=== PATIENT | male | born 1955 | race Caucasian/White ===

== ENCOUNTER 2022-05-16 01:06 | Inpatient (IN) | payer OTHER ==
[2022-05-16] VITALS (64 sets, daily range): BP systolic 82–143; BP diastolic 23–69
[~2022-05-16] VITALS: Ht 172.7 cm; Wt 62.0 kg
[~2022-05-16 01:06] MED LIST: CARI250T
[2022-05-16] MEDS ORDERED: NALOXONE HCL 1MG/ML 2ML SYRINGE IV ONE (01:30)
[2022-05-16] MEDS ORDERED: LORazepam 2MG/ML-1ML VIAL ONE (01:37)
[2022-05-16] MEDS ORDERED: levETIRAcetam 500 MG/5ML INJ IV ONE (01:37)
[2022-05-16] MEDS ORDERED: ETOMIDATE (2MG/ML) 20ML VIAL IV ONE ×2 (01:50→02:30)
[2022-05-16] MEDS ORDERED: SUCCINYLCHOLINE CHLORIDE 20 MG/ML 10ML VIAL IV ONE ×2 (01:51→02:30)
[2022-05-16] MEDS ORDERED: MIDAZOLAM DRIP 50 mg/50mL 50 ML IV ONE (01:51)
[2022-05-16] MEDS: MIDAZOLAM DRIP 50 mg/50mL 50 ML IV SCH (02:00)
[2022-05-16 02:07] LABS: Basophils # (auto) 0.1 10 ^3/uL (0-0.2); Basophils % (auto) 0.8 % (0.0-2.0); Eosinophils # (auto) 0 10 ^3/uL (0-0.8); Eosinophils % (auto) 0.5 % (0.0-7.0); Hematocrit 41.1 % (41.0-53.0); Hemoglobin 13.8 g/dL (13.5-17.5); Lymphocytes # (auto) 3.1 10 ^3/uL (0.4-5.4); Lymphocytes % (auto) 33.8 % (10.0-50.0); Mean Corpuscular Hemoglobin 30.6 pg (28.0-32.0); Mean Corpuscular Hgb Conc. 33.7 g/dL (32.0-36.0); Mean Corpuscular Volume 90.8 fL (80.0-100.0); Monocytes # (auto) 0.5 10 ^3/uL (0-1.3); Monocytes % (auto) 5.4 % (0.0-12.0); Neutrophils # (auto) 5.5 10 ^3/uL (1.6-8.6); Neutrophils % (auto) 59.5 % (37.0-80.0); Nucleated Red Blood Cells % 0.1 %; Red Blood Cells 4.52 10^6/uL (4.5-5.90); Red Cell Distribution Width 15.7 % (11.8-14.3); White Blood Cell 9.3 10^3/uL (4.4-10.8)
[2022-05-16 02:19] LABS: Albumin 3.3 g/dL (3.4-5.0); Calcium 8.5 mg/dL (8.5-10.1)
[2022-05-16 02:23] LABS: BUN/Creatinine Ratio 14.2
[2022-05-16] MEDS ORDERED: LORazepam 2MG/ML-1ML VIAL IV ONE (02:30)
[2022-05-16 02:32] LABS: Lactic Acid w/Reflex 6.9 mmol/L (0.4-2.0)
[2022-05-16 02:35] LABS: Bilirubin, Total 0.3 mg/dL (0.2-1.0); Total Protein 6.8 g/dL (6.4-8.2)
[2022-05-16] MEDS: PROPOFOL 100 ML IV SCH (03:44)
[2022-05-16] MEDS ORDERED: AZITHROMYCIN 500MG/ 250ML 250 ML IV ONE ×2 (04:00→17:30)
[2022-05-16] MEDS ORDERED: cefTRIAXone 1GM/50ML D5W 50 ML IV ONE (04:00)
[2022-05-16] MEDS ORDERED: IOHEXOL 350 MG/ML 100ML IJ ONE (04:03)
[2022-05-16] MEDS ORDERED: ONDANSETRON HCL 4 MG/2 ML VIAL IV PRN (05:00)
[2022-05-16] MEDS ORDERED: NITROGLYCERIN 0.4 MG SL TAB SL PRN (05:00)
[2022-05-16] MEDS ORDERED: MORPHINE SULFATE INJ 2 MG/ml SYRG IV PRN (05:00)
[2022-05-16] MEDS: SODIUM CHLORIDE 0.9% 1,000 ML IV SCH ×2 (05:54→18:20)
[2022-05-16] MEDS ORDERED: levoFLOXacin 500MG 100 ML IV SCH (10:00)
[2022-05-16] MEDS ORDERED: ENOXAPARIN SOD 40 MG/0.4 ML SYRINGE SC SCH (10:00)
[2022-05-16] MEDS: ENOXAPARIN SOD 80 MG/0.8ML SYRINGE SC SCH ×2 (10:22→21:28)
[2022-05-16 11:30] LABS: Potassium 3.9 mmol/L (3.5-5.1)
[2022-05-16 11:41] LABS: Albumin 2.8 g/dL (3.4-5.0); BUN/Creatinine Ratio 14.3; Bilirubin, Total 0.3 mg/dL (0.2-1.0); Calcium 8.2 mg/dL (8.5-10.1); Total Protein 6.2 g/dL (6.4-8.2)
[2022-05-16] MEDS ORDERED: DexAMETHasone SOD PHOS 10MG/1ML VIAL INJ IV ONE (17:30)
[2022-05-16] MEDS ORDERED: REMDESIVIR PER PHARMACY 0 ML IV SCH (17:30)
[2022-05-16] MEDS ORDERED: REMDESIVIR 200 MG in NS 210ml LOADING DOSE ADULT IV ONE (20:00)
[2022-05-16] MEDS ORDERED: NOREPINEPHRINE 8 MG/250ML KIT 250 ML IV ONE (21:01)
[2022-05-16] MEDS: NOREPINEPHRINE 8 MG/250ML KIT 250 ML IV SCH (21:26)
[2022-05-16] MEDS: ASCORBIC ACID 500 MG TAB PO SCH (21:28)
[2022-05-16] MEDS ORDERED: DOPamine 1600MCG/ML D5W 250 ML IV ONE (21:58)
[2022-05-16] MEDS: DOPamine 1600MCG/ML D5W 250 ML IV SCH (22:00)
[2022-05-17] VITALS (95 sets, daily range): BP systolic 71–128; BP diastolic 31–63
[2022-05-17] MEDS: PROPOFOL 100 ML IV SCH ×2 (01:00→17:30)
[2022-05-17] MEDS: MIDAZOLAM DRIP 50 mg/50mL 50 ML IV SCH ×2 (01:00→11:15)
[2022-05-17 04:37] LABS: Alanine Aminotransferase 12 U/L (16-61); Albumin 2.8 g/dL (3.4-5.0); Anion Gap 6 (5-15); Aspartate Aminotransferase 17 U/L (15-37); BUN/Creatinine Ratio 12.3; Blood Urea Nitrogen 9 mg/dL (7-18); Calcium 8.3 mg/dL (8.5-10.1); Carbon Dioxide 21 mmol/L (21-32); Chloride 113 mmol/L (98-107); GFR African American 139 mL/min; GFR Non-African American 115 mL/min; Glucose 140 mg/dL (74-106); Potassium 4.3 mmol/L (3.5-5.1); Sodium 140 mmol/L (136-145)
[2022-05-17 04:40] LABS: Alkaline Phosphatase 117 U/L (45-117); Bilirubin, Total 0.3 mg/dL (0.2-1.0)
[2022-05-17 05:05] LABS: Basophils # (auto) 0 10 ^3/uL (0-0.2); Basophils % (auto) 0.7 % (0.0-2.0); Eosinophils # (auto) 0 10 ^3/uL (0-0.8); Hemoglobin 12.2 g/dL (13.5-17.5); Lymphocytes # (auto) 0.8 10 ^3/uL (0.4-5.4); Lymphocytes % (auto) 15.5 % (10.0-50.0); Mean Corpuscular Hemoglobin 30.2 pg (28.0-32.0); Mean Corpuscular Hgb Conc. 33.8 g/dL (32.0-36.0); Mean Corpuscular Volume 89.3 fL (80.0-100.0); Monocytes # (auto) 0.1 10 ^3/uL (0-1.3); Monocytes % (auto) 1.5 % (0.0-12.0); Neutrophils # (auto) 4.3 10 ^3/uL (1.6-8.6); Neutrophils % (auto) 82.3 % (37.0-80.0); Red Blood Cells 4.03 10^6/uL (4.5-5.90); Red Cell Distribution Width 15.4 % (11.8-14.3); White Blood Cell 5.2 10^3/uL (4.4-10.8)
[2022-05-17] MEDS: SODIUM CHLORIDE 0.9% 1,000 ML IV SCH ×3 (09:00→21:43)
[2022-05-17] MEDS: DexAMETHasone SOD PHOS 10MG/1ML VIAL INJ IV SCH (10:16)
[2022-05-17] MEDS: ENOXAPARIN SOD 80 MG/0.8ML SYRINGE SC SCH ×2 (10:16→21:49)
[2022-05-17] MEDS: CHOLECALCIFEROL (VITD3) 2,000 UNIT CAP/TAB PO SCH (10:17)
[2022-05-17] MEDS: AZITHROMYCIN 500MG/ 250ML 250 ML IV SCH (10:17)
[2022-05-17] MEDS: ZINC SULFATE 220mg CAP or TAB NG SCH (10:17)
[2022-05-17] MEDS: ASCORBIC ACID 500 MG TAB PO SCH ×2 (10:17→21:50)
[2022-05-17] MEDS: NOREPINEPHRINE 8 MG/250ML KIT 250 ML IV SCH ×2 (14:00→17:31)
[2022-05-17 14:26] LABS: Alcohol, Urine < 3.0 mg/dL (0-10); Amphetamine Screen, Urine NEGATIVE (NEGATIVE); Barbiturate Scree,Urine NEGATIVE (NEGATIVE); Benzodiazephine Screen, Urine POSITIVE (NEGATIVE); Cannabinoid Screen, Urine POSITIVE (NEGATIVE); Cocaine Screen, Urine NEGATIVE (NEGATIVE); Opiate Scree,Urine NEGATIVE (NEGATIVE); Phencyclidine Screen, Urine NEGATIVE (NEGATIVE)
[2022-05-17 14:38] LABS: Urine Bacteria FEW /hpf (None Seen); Urine Blood 3+ /uL (Negative); Urine Mucus FEW (None Seen); Urine Specific Gravity 1.017 (1.001-1.035); Urine WBC 33 /hpf (0 - 3)
[2022-05-17] MEDS: REMDESIVIR 100mg 100 MG in SODIUM CHL 0.9% 230 ML IV SCH (15:22)
[2022-05-17] MEDS: DOPamine 1600MCG/ML D5W 250 ML IV SCH (21:49)
[2022-05-17] MEDS: MORPHINE SULFATE INJ 2 MG/ml SYRG IV PRN (23:02)
[2022-05-17 23:50] LABS: Potassium 4.3 mmol/L (3.5-5.1)
[2022-05-17 23:54] LABS: Magnesium 2.2 mg/dL (1.6-2.6)
[2022-05-18] VITALS (98 sets, daily range): BP systolic 87–172; BP diastolic 28–60
[2022-05-18] MEDS ORDERED: ASPirin 81 mg TAB PO ONE (00:45)
[2022-05-18] MEDS ORDERED: ATORVASTATIN 20 MG TAB PO ONE (00:45)
[2022-05-18] MEDS ORDERED: HEPARIN SODIUM (PORCINE) 5000 UNITS/ML 1ML VIAL IV SCH (01:15)
[2022-05-18] MEDS ORDERED: HEPARIN DRIP/D5W 100UNITS/ML 250 ML IV SCH (01:15)
[2022-05-18 02:28] LABS: INR 1.08 (0.9-1.15); Partial Thromboplastin Time 31.9 sec (23.6-33.0)
[2022-05-18] MEDS: MIDAZOLAM DRIP 50 mg/50mL 50 ML IV SCH (02:38)
[2022-05-18 03:51] LABS: Basophils # (auto) 0.1 10 ^3/uL (0-0.2); Basophils % (auto) 0.5 % (0.0-2.0); Eosinophils # (auto) 0 10 ^3/uL (0-0.8); Eosinophils % (auto) 0.1 % (0.0-7.0); Hematocrit 42.7 % (41.0-53.0); Hemoglobin 13.9 g/dL (13.5-17.5); Lymphocytes # (auto) 1.2 10 ^3/uL (0.4-5.4); Lymphocytes % (auto) 6.4 % (10.0-50.0); Mean Corpuscular Hemoglobin 29.6 pg (28.0-32.0); Mean Corpuscular Hgb Conc. 32.7 g/dL (32.0-36.0); Mean Corpuscular Volume 90.7 fL (80.0-100.0); Monocytes % (auto) 5.5 % (0.0-12.0); Neutrophils # (auto) 16.1 10 ^3/uL (1.6-8.6); Neutrophils % (auto) 87.5 % (37.0-80.0); Nucleated Red Blood Cells % 0.1 %; Red Blood Cells 4.71 10^6/uL (4.5-5.90); Red Cell Distribution Width 15.8 % (11.8-14.3); White Blood Cell 18.4 10^3/uL (4.4-10.8)
[2022-05-18 04:03] LABS: Albumin 2.9 g/dL (3.4-5.0); Calcium 8.4 mg/dL (8.5-10.1); Potassium 4.4 mmol/L (3.5-5.1)
[2022-05-18 04:12] LABS: BUN/Creatinine Ratio 16.5; Bilirubin, Total 0.5 mg/dL (0.2-1.0); CRP High Sensitivity 2.05 mg/dL (< 0.3); Total Protein 6.7 g/dL (6.4-8.2)
[2022-05-18] MEDS: PROPOFOL 100 ML IV SCH (08:35)
[2022-05-18] MEDS: NOREPINEPHRINE 8 MG/250ML KIT 250 ML IV SCH (08:47)
[2022-05-18] MEDS: fentaNYL Drip 2500mCg/250mlNS 250 ML IV SCH (11:00)
[2022-05-18] MEDS: AZITHROMYCIN 500MG/ 250ML 250 ML IV SCH (11:27)
[2022-05-18] MEDS: ZINC SULFATE 220mg CAP or TAB NG SCH (11:27)
[2022-05-18] MEDS: DexAMETHasone SOD PHOS 10MG/1ML VIAL INJ IV SCH (11:27)
[2022-05-18] MEDS: ASCORBIC ACID 500 MG TAB PO SCH ×2 (11:27→22:19)
[2022-05-18] MEDS: CHOLECALCIFEROL (VITD3) 2,000 UNIT CAP/TAB PO SCH (11:28)
[2022-05-18] MEDS ORDERED: LIDOCAINE 2%HCL (LOCAL ANESTH.) INJ 10ml MDV ONE (11:59)
[2022-05-18] MEDS ORDERED: IOHEXOL 350 MG/ML 100ML IJ ONE ×2 (11:59→13:12)
[2022-05-18] MEDS ORDERED: ANGIOMAX 250 MG VIAL IV ONE (12:05)
[2022-05-18] MEDS ORDERED: SODIUM CHL 0.9% 0 ML ONE (12:05)
[2022-05-18] MEDS ORDERED: VERAPAMIL 2.5MG/ML INJ 2ML VIAL IV ONE (12:55)
[2022-05-18] MEDS ORDERED: NOREPINEPHRINE 8 MG/250ML KIT 250 ML IV ONE (13:05)
[2022-05-18] MEDS ORDERED: HEPARIN SODIUM (PORCINE) 5000 UNITS/ML 1ML VIAL ONE (13:08)
[2022-05-18] MEDS ORDERED: CLOPIDOGREL 300 MG TAB ONE (13:15)
[2022-05-18] MEDS: REMDESIVIR 100mg 100 MG in SODIUM CHL 0.9% 230 ML IV SCH (15:48)
[2022-05-18] MEDS: DOPamine 1600MCG/ML D5W 250 ML IV SCH (21:45)
[2022-05-18] MEDS: ATORVASTATIN 20 MG TAB PO SCH (22:19)
[2022-05-18] MEDS: SODIUM CHLORIDE 0.9% 1,000 ML IV SCH (22:20)
[2022-05-19] VITALS (107 sets, daily range): BP systolic 81–135; BP diastolic 41–73
[2022-05-19] MEDS: MIDAZOLAM DRIP 50 mg/50mL 50 ML IV SCH ×4 (00:02→22:27)
[2022-05-19] MEDS: PROPOFOL 100 ML IV SCH (02:04)
[2022-05-19] MEDS: DOPamine 1600MCG/ML D5W 250 ML IV SCH (04:26)
[2022-05-19 04:54] LABS: Basophils # (auto) 0.1 10 ^3/uL (0-0.2); Basophils % (auto) 0.4 % (0.0-2.0); Eosinophils # (auto) 0 10 ^3/uL (0-0.8); Hematocrit 38.7 % (41.0-53.0); Hemoglobin 12.6 g/dL (13.5-17.5); Lymphocytes # (auto) 0.8 10 ^3/uL (0.4-5.4); Lymphocytes % (auto) 6.5 % (10.0-50.0); Mean Corpuscular Hgb Conc. 32.5 g/dL (32.0-36.0); Mean Corpuscular Volume 89.3 fL (80.0-100.0); Monocytes # (auto) 0.5 10 ^3/uL (0-1.3); Monocytes % (auto) 3.9 % (0.0-12.0); Neutrophils # (auto) 11.2 10 ^3/uL (1.6-8.6); Neutrophils % (auto) 89.2 % (37.0-80.0); Nucleated Red Blood Cells % 0.1 %; Red Blood Cells 4.34 10^6/uL (4.5-5.90); Red Cell Distribution Width 15.8 % (11.8-14.3); White Blood Cell 12.6 10^3/uL (4.4-10.8)
[2022-05-19 04:56] LABS: Albumin 2.3 g/dL (3.4-5.0); Calcium 7.9 mg/dL (8.5-10.1); Potassium 4.9 mmol/L (3.5-5.1)
[2022-05-19 05:06] LABS: BUN/Creatinine Ratio 21.3; Bilirubin, Total 0.3 mg/dL (0.2-1.0); CRP High Sensitivity 8.13 mg/dL (< 0.3); Total Protein 5.6 g/dL (6.4-8.2)
[2022-05-19] MEDS: NOREPINEPHRINE 8 MG/250ML KIT 250 ML IV SCH ×2 (06:08→19:30)
[2022-05-19] MEDS: fentaNYL Drip 2500mCg/250mlNS 250 ML IV SCH ×2 (08:45→22:27)
[2022-05-19] MEDS ORDERED: FUROSEMIDE 40 MG/4 ML VIAL IV ONE (09:30)
[2022-05-19] MEDS ORDERED: PANTOPRAZOLE 40 MG TAB PO SCH (10:00)
[2022-05-19] MEDS ORDERED: dilTIAZem 25 MG/5 ML VIAL IV ONE (10:30)
[2022-05-19] MEDS ORDERED: AMIODARONE 450mg/250ml AE 250 ML IV SCH (10:45)
[2022-05-19] MEDS ORDERED: AMIODARONE HCL 150 MG in D5W 5% 100 ML IV ONE (10:45)
[2022-05-19] MEDS: DexAMETHasone SOD PHOS 10MG/1ML VIAL INJ IV SCH (11:08)
[2022-05-19] MEDS: ASPirin 81 mg TAB PO SCH (11:09)
[2022-05-19] MEDS: ZINC SULFATE 220mg CAP or TAB NG SCH (11:09)
[2022-05-19] MEDS: CLOPIDOGREL BISULFATE 75 MG TAB PO SCH (11:09)
[2022-05-19] MEDS: AZITHROMYCIN 500MG/ 250ML 250 ML IV SCH (11:09)
[2022-05-19] MEDS: CHOLECALCIFEROL (VITD3) 2,000 UNIT CAP/TAB PO SCH (11:10)
[2022-05-19] MEDS: ENOXAPARIN SOD 30 MG/0.3 ML SYRINGE SC SCH (11:10)
[2022-05-19] MEDS: ASCORBIC ACID 500 MG TAB PO SCH ×2 (11:10→22:27)
[2022-05-19] MEDS: REMDESIVIR 100mg 100 MG in SODIUM CHL 0.9% 230 ML IV SCH (14:46)
[2022-05-19] MEDS: SODIUM CHLORIDE 0.9% 1,000 ML IV SCH (14:46)
[2022-05-19] MEDS: AMIODARONE 450mg/250ml AE 250 ML IV SCH (17:00)
[2022-05-19] MEDS: ATORVASTATIN 20 MG TAB PO SCH (22:27)
[2022-05-20] VITALS (105 sets, daily range): BP systolic 59–153; BP diastolic 48–69
[2022-05-20] MEDS: PROPOFOL 100 ML IV SCH (02:45)
[2022-05-20] MEDS: SODIUM CHLORIDE 0.9% 1,000 ML IV SCH ×3 (05:00→20:05)
[2022-05-20] MEDS: MIDAZOLAM DRIP 50 mg/50mL 50 ML IV SCH ×2 (05:00→20:07)
[2022-05-20] MEDS: NOREPINEPHRINE 8 MG/250ML KIT 250 ML IV SCH ×2 (06:00→19:40)
[2022-05-20 06:26] LABS: Basophils # (auto) 0 10 ^3/uL (0-0.2); Basophils % (auto) 0.1 % (0.0-2.0); Eosinophils # (auto) 0 10 ^3/uL (0-0.8); Hematocrit 36.4 % (41.0-53.0); Hemoglobin 12.1 g/dL (13.5-17.5); Lymphocytes # (auto) 0.9 10 ^3/uL (0.4-5.4); Lymphocytes % (auto) 12.3 % (10.0-50.0); Mean Corpuscular Hemoglobin 30.4 pg (28.0-32.0); Mean Corpuscular Hgb Conc. 33.2 g/dL (32.0-36.0); Mean Corpuscular Volume 91.4 fL (80.0-100.0); Monocytes # (auto) 0.3 10 ^3/uL (0-1.3); Monocytes % (auto) 4.8 % (0.0-12.0); Neutrophils # (auto) 5.8 10 ^3/uL (1.6-8.6); Neutrophils % (auto) 82.8 % (37.0-80.0); Nucleated Red Blood Cells % 0.2 %; Red Blood Cells 3.98 10^6/uL (4.5-5.90); Red Cell Distribution Width 15.7 % (11.8-14.3)
[2022-05-20 06:32] LABS: Albumin 2.2 g/dL (3.4-5.0); Calcium 8.1 mg/dL (8.5-10.1); Potassium 4.3 mmol/L (3.5-5.1)
[2022-05-20 06:41] LABS: BUN/Creatinine Ratio 28.4; Bilirubin, Total 0.4 mg/dL (0.2-1.0); CRP High Sensitivity 5.89 mg/dL (< 0.3); Total Protein 5.2 g/dL (6.4-8.2)
[2022-05-20] MEDS: AMIODARONE 450mg/250ml AE 250 ML IV SCH ×2 (07:45→22:45)
[2022-05-20] MEDS: DexAMETHasone SOD PHOS 10MG/1ML VIAL INJ IV SCH (12:24)
[2022-05-20] MEDS: CLOPIDOGREL BISULFATE 75 MG TAB PO SCH (12:25)
[2022-05-20] MEDS: ASPirin 81 mg TAB PO SCH (12:25)
[2022-05-20] MEDS: ZINC SULFATE 220mg CAP or TAB NG SCH (12:25)
[2022-05-20] MEDS: PANTOPRAZOLE 40 MG/10 ML VIAL INJ IV SCH (12:25)
[2022-05-20] MEDS: AZITHROMYCIN 500MG/ 250ML 250 ML IV SCH (12:25)
[2022-05-20] MEDS: CHOLECALCIFEROL (VITD3) 2,000 UNIT CAP/TAB PO SCH (12:26)
[2022-05-20] MEDS: ENOXAPARIN SOD 30 MG/0.3 ML SYRINGE SC SCH (12:26)
[2022-05-20] MEDS: ASCORBIC ACID 500 MG TAB PO SCH ×2 (12:26→22:00)
[2022-05-20] MEDS ORDERED: FUROSEMIDE 40 MG/4 ML VIAL IV ONE (13:00)
[2022-05-20] MEDS: REMDESIVIR 100mg 100 MG in SODIUM CHL 0.9% 230 ML IV SCH (15:05)
[2022-05-20] MEDS: DOPamine 1600MCG/ML D5W 250 ML IV SCH (21:45)
[2022-05-20] MEDS: ATORVASTATIN 20 MG TAB PO SCH (22:00)
[2022-05-21] VITALS (107 sets, daily range): BP systolic 84–128; BP diastolic 43–67
[2022-05-21] MEDS: PROPOFOL 100 ML IV SCH (02:45)
[2022-05-21] MEDS: MIDAZOLAM DRIP 50 mg/50mL 50 ML IV SCH ×4 (03:00→22:00)
[2022-05-21 04:49] LABS: Basophils # (auto) 0 10 ^3/uL (0-0.2); Basophils % (auto) 0.4 % (0.0-2.0); Eosinophils # (auto) 0 10 ^3/uL (0-0.8); Hematocrit 33.8 % (41.0-53.0); Hemoglobin 11.1 g/dL (13.5-17.5); Lymphocytes # (auto) 0.7 10 ^3/uL (0.4-5.4); Lymphocytes % (auto) 16.4 % (10.0-50.0); Mean Corpuscular Hemoglobin 29.6 pg (28.0-32.0); Mean Corpuscular Volume 89.7 fL (80.0-100.0); Monocytes # (auto) 0.3 10 ^3/uL (0-1.3); Monocytes % (auto) 5.8 % (0.0-12.0); Neutrophils # (auto) 3.5 10 ^3/uL (1.6-8.6); Neutrophils % (auto) 77.4 % (37.0-80.0); Nucleated Red Blood Cells % 0.1 %; Red Blood Cells 3.77 10^6/uL (4.5-5.90); Red Cell Distribution Width 15.5 % (11.8-14.3); White Blood Cell 4.5 10^3/uL (4.4-10.8)
[2022-05-21 05:52] LABS: BUN/Creatinine Ratio 41.4; Calcium 7.9 mg/dL (8.5-10.1); Potassium 3.7 mmol/L (3.5-5.1)
[2022-05-21 05:55] LABS: Bilirubin, Total 0.4 mg/dL (0.2-1.0); Total Protein 4.6 g/dL (6.4-8.2)
[2022-05-21] MEDS: fentaNYL Drip 2500mCg/250mlNS 250 ML IV SCH (07:00)
[2022-05-21] MEDS: DexAMETHasone SOD PHOS 10MG/1ML VIAL INJ IV SCH (10:13)
[2022-05-21] MEDS: CLOPIDOGREL BISULFATE 75 MG TAB PO SCH (10:14)
[2022-05-21] MEDS: PANTOPRAZOLE 40 MG/10 ML VIAL INJ IV SCH (10:14)
[2022-05-21] MEDS: ASPirin 81 mg TAB PO SCH (10:14)
[2022-05-21] MEDS: ZINC SULFATE 220mg CAP or TAB NG SCH (10:14)
[2022-05-21] MEDS: CHOLECALCIFEROL (VITD3) 2,000 UNIT CAP/TAB PO SCH (10:14)
[2022-05-21] MEDS: AZITHROMYCIN 500MG/ 250ML 250 ML IV SCH (10:14)
[2022-05-21] MEDS: ASCORBIC ACID 500 MG TAB PO SCH ×2 (10:14→22:00)
[2022-05-21] MEDS: ENOXAPARIN SOD 30 MG/0.3 ML SYRINGE SC SCH (10:15)
[2022-05-21] MEDS: AMIODARONE 450mg/250ml AE 250 ML IV SCH (13:45)
[2022-05-21] MEDS: SODIUM CHLORIDE 0.9% 1,000 ML IV SCH ×2 (18:30→21:00)
[2022-05-21] MEDS: ATORVASTATIN 20 MG TAB PO SCH (22:00)
[2022-05-22] VITALS (100 sets, daily range): BP systolic 86–153; BP diastolic 41–81
[2022-05-22] MEDS: PROPOFOL 100 ML IV SCH ×3 (02:45→23:45)
[2022-05-22] MEDS: AMIODARONE 450mg/250ml AE 250 ML IV SCH ×2 (04:45→19:45)
[2022-05-22 06:15] LABS: Basophils # (auto) 0 10 ^3/uL (0-0.2); Basophils % (auto) 0.2 % (0.0-2.0); Eosinophils # (auto) 0 10 ^3/uL (0-0.8); Hematocrit 29.9 % (41.0-53.0); Lymphocytes # (auto) 0.8 10 ^3/uL (0.4-5.4); Lymphocytes % (auto) 19.8 % (10.0-50.0); Mean Corpuscular Hgb Conc. 33.5 g/dL (32.0-36.0); Mean Corpuscular Volume 89.3 fL (80.0-100.0); Monocytes # (auto) 0.2 10 ^3/uL (0-1.3); Monocytes % (auto) 4.7 % (0.0-12.0); Neutrophils # (auto) 3.1 10 ^3/uL (1.6-8.6); Neutrophils % (auto) 75.3 % (37.0-80.0); Nucleated Red Blood Cells % 0.1 %; Red Blood Cells 3.34 10^6/uL (4.5-5.90); White Blood Cell 4.1 10^3/uL (4.4-10.8)
[2022-05-22 06:32] LABS: Potassium 3.7 mmol/L (3.5-5.1)
[2022-05-22 06:40] LABS: BUN/Creatinine Ratio 57.7; Bilirubin, Total 0.4 mg/dL (0.2-1.0); Calcium 7.8 mg/dL (8.5-10.1); Total Protein 4.5 g/dL (6.4-8.2)
[2022-05-22] MEDS: DOPamine 1600MCG/ML D5W 250 ML IV SCH ×2 (08:30→21:45)
[2022-05-22] MEDS: fentaNYL Drip 2500mCg/250mlNS 250 ML IV SCH ×2 (08:45→20:19)
[2022-05-22] MEDS: PANTOPRAZOLE 40 MG/10 ML VIAL INJ IV SCH (10:05)
[2022-05-22] MEDS: DexAMETHasone SOD PHOS 10MG/1ML VIAL INJ IV SCH (10:05)
[2022-05-22] MEDS: ASPirin 81 mg TAB PO SCH (10:05)
[2022-05-22] MEDS: AZITHROMYCIN 500MG/ 250ML 250 ML IV SCH (10:05)
[2022-05-22] MEDS: ASCORBIC ACID 500 MG TAB PO SCH ×2 (10:06→21:42)
[2022-05-22] MEDS: CLOPIDOGREL BISULFATE 75 MG TAB PO SCH (10:06)
[2022-05-22] MEDS: CHOLECALCIFEROL (VITD3) 2,000 UNIT CAP/TAB PO SCH (10:07)
[2022-05-22] MEDS: ENOXAPARIN SOD 30 MG/0.3 ML SYRINGE SC SCH (10:07)
[2022-05-22] MEDS: ZINC SULFATE 220mg CAP or TAB NG SCH (10:18)
[2022-05-22] MEDS: MIDAZOLAM DRIP 50 mg/50mL 50 ML IV SCH (20:17)
[2022-05-22] MEDS: NOREPINEPHRINE 8 MG/250ML KIT 250 ML IV SCH (21:00)
[2022-05-22] MEDS: ATORVASTATIN 20 MG TAB PO SCH (21:42)
[2022-05-23] VITALS (45 sets, daily range): BP systolic 103–143; BP diastolic 49–81
[2022-05-23] MEDS: SODIUM CHLORIDE 0.9% 1,000 ML IV SCH ×3 (02:18→23:44)
[2022-05-23 04:39] LABS: Basophils # (auto) 0 10 ^3/uL (0-0.2); Basophils % (auto) 0.2 % (0.0-2.0); Eosinophils # (auto) 0 10 ^3/uL (0-0.8); Hemoglobin 11.3 g/dL (13.5-17.5); Lymphocytes # (auto) 1.2 10 ^3/uL (0.4-5.4); Lymphocytes % (auto) 13.3 % (10.0-50.0); Mean Corpuscular Hemoglobin 29.8 pg (28.0-32.0); Mean Corpuscular Hgb Conc. 33.4 g/dL (32.0-36.0); Mean Corpuscular Volume 89.2 fL (80.0-100.0); Monocytes # (auto) 0.4 10 ^3/uL (0-1.3); Monocytes % (auto) 4.6 % (0.0-12.0); Neutrophils # (auto) 7.2 10 ^3/uL (1.6-8.6); Neutrophils % (auto) 81.9 % (37.0-80.0); Nucleated Red Blood Cells % 0.1 %; Red Blood Cells 3.81 10^6/uL (4.5-5.90); Red Cell Distribution Width 15.2 % (11.8-14.3); White Blood Cell 8.8 10^3/uL (4.4-10.8)
[2022-05-23 04:49] LABS: Albumin 2.4 g/dL (3.4-5.0); BUN/Creatinine Ratio 33.8; Calcium 7.9 mg/dL (8.5-10.1); Potassium 4.2 mmol/L (3.5-5.1)
[2022-05-23 04:52] LABS: Bilirubin, Total 0.5 mg/dL (0.2-1.0); Total Protein 5.1 g/dL (6.4-8.2)
[2022-05-23] MEDS: MIDAZOLAM DRIP 50 mg/50mL 50 ML IV SCH (06:04)
[2022-05-23] MEDS: CHOLECALCIFEROL (VITD3) 2,000 UNIT CAP/TAB PO SCH (10:00)
[2022-05-23] MEDS: CLOPIDOGREL BISULFATE 75 MG TAB PO SCH (10:00)
[2022-05-23] MEDS: ASPirin 81 mg TAB PO SCH (10:00)
[2022-05-23] MEDS: ZINC SULFATE 220mg CAP or TAB NG SCH (10:00)
[2022-05-23] MEDS: ASCORBIC ACID 500 MG TAB PO SCH ×2 (10:00→21:59)
[2022-05-23] MEDS: AMIODARONE 450mg/250ml AE 250 ML IV SCH (10:45)
[2022-05-23] MEDS: PANTOPRAZOLE 40 MG/10 ML VIAL INJ IV SCH (11:48)
[2022-05-23] MEDS: AZITHROMYCIN 500MG/ 250ML 250 ML IV SCH (11:49)
[2022-05-23] MEDS: DexAMETHasone SOD PHOS 10MG/1ML VIAL INJ IV SCH (11:52)
[2022-05-23] MEDS: ENOXAPARIN SOD 30 MG/0.3 ML SYRINGE SC SCH (11:53)
[2022-05-23] MEDS: ALBUTEROL SULF 2.5 MG/0.5ML(0.5%) NEB SOLN NEB SCH (19:12)
[2022-05-23] MEDS: IPRATROPIUM BROM 0.5 MG/2.5ML INH SOL NEB SCH (19:13)
[2022-05-23] MEDS: MORPHINE SULFATE INJ 2 MG/ml SYRG IV PRN (20:45)
[2022-05-23] MEDS: NOREPINEPHRINE 8 MG/250ML KIT 250 ML IV SCH (21:00)
[2022-05-23] MEDS: ATORVASTATIN 20 MG TAB PO SCH (21:59)
[2022-05-24] VITALS (32 sets, daily range): BP systolic 89–155; BP diastolic 31–108
[2022-05-24] MEDS: ALBUTEROL SULF 2.5 MG/0.5ML(0.5%) NEB SOLN NEB SCH ×4 (00:30→18:49)
[2022-05-24] MEDS: IPRATROPIUM BROM 0.5 MG/2.5ML INH SOL NEB SCH ×4 (00:30→18:49)
[2022-05-24] MEDS ORDERED: DexmedeTOMIDine 4 ML IV ONE (04:07)
[2022-05-24 04:36] LABS: Albumin 2.5 g/dL (3.4-5.0); Chloride 115 mmol/L (98-107); Potassium 3.7 mmol/L (3.5-5.1); Sodium 146 mmol/L (136-145)
[2022-05-24 04:42] LABS: Alanine Aminotransferase 31 U/L (16-61); Alkaline Phosphatase 94 U/L (45-117); Anion Gap 9 (5-15); Aspartate Aminotransferase 31 U/L (15-37); Bilirubin, Total 0.7 mg/dL (0.2-1.0); Blood Urea Nitrogen 19 mg/dL (7-18); Carbon Dioxide 22 mmol/L (21-32); GFR African American 139 mL/min; GFR Non-African American 115 mL/min; Glucose 88 mg/dL (74-106); Total Protein 4.9 g/dL (6.4-8.2)
[2022-05-24 07:28] LABS: Basophils # (auto) 0 10 ^3/uL (0-0.2); Basophils % (auto) 0.3 % (0.0-2.0); Eosinophils # (auto) 0 10 ^3/uL (0-0.8); Eosinophils % (auto) 0.5 % (0.0-7.0); Hematocrit 34.3 % (41.0-53.0); Hemoglobin 11.3 g/dL (13.5-17.5); Lymphocytes # (auto) 1.4 10 ^3/uL (0.4-5.4); Lymphocytes % (auto) 14.4 % (10.0-50.0); Mean Corpuscular Hemoglobin 29.2 pg (28.0-32.0); Mean Corpuscular Hgb Conc. 33.1 g/dL (32.0-36.0); Mean Corpuscular Volume 88.2 fL (80.0-100.0); Monocytes # (auto) 0.5 10 ^3/uL (0-1.3); Monocytes % (auto) 5.2 % (0.0-12.0); Neutrophils # (auto) 7.9 10 ^3/uL (1.6-8.6); Neutrophils % (auto) 79.6 % (37.0-80.0); Red Blood Cells 3.88 10^6/uL (4.5-5.90); Red Cell Distribution Width 15.4 % (11.8-14.3); White Blood Cell 9.9 10^3/uL (4.4-10.8)
[2022-05-24] MEDS: DexAMETHasone SOD PHOS 10MG/1ML VIAL INJ IV SCH (08:04)
[2022-05-24] MEDS: ENOXAPARIN SOD 30 MG/0.3 ML SYRINGE SC SCH (08:04)
[2022-05-24] MEDS: PANTOPRAZOLE 40 MG/10 ML VIAL INJ IV SCH (08:04)
[2022-05-24] MEDS: MORPHINE SULFATE INJ 2 MG/ml SYRG IV PRN (08:05)
[2022-05-24] MEDS: PROPOFOL 100 ML IV SCH (08:06)
[2022-05-24] MEDS: DOPamine 1600MCG/ML D5W 250 ML IV SCH (08:06)
[2022-05-24] MEDS: AMIODARONE 450mg/250ml AE 250 ML IV SCH ×2 (08:06→13:19)
[2022-05-24] MEDS ORDERED: HALOPERIDOL LACTATE 5 MG/ML INJ VIAL ONE (08:52)
[2022-05-24] MEDS: HALOPERIDOL LACTATE 5 MG/ML INJ VIAL IM PRN ×2 (09:14→21:09)
[2022-05-24] MEDS: ASPirin 81 mg TAB PO SCH (10:00)
[2022-05-24] MEDS: CLOPIDOGREL BISULFATE 75 MG TAB PO SCH (10:00)
[2022-05-24] MEDS: ASCORBIC ACID 500 MG TAB PO SCH ×2 (10:00→22:00)
[2022-05-24] MEDS: CHOLECALCIFEROL (VITD3) 2,000 UNIT CAP/TAB PO SCH (10:00)
[2022-05-24] MEDS: ZINC SULFATE 220mg CAP or TAB NG SCH (10:00)
[2022-05-24] MEDS: AZITHROMYCIN 500MG/ 250ML 250 ML IV SCH (10:15)
[2022-05-24] MEDS ORDERED: HYDROmorphone HCL 2 MG/ML VL/or syr IV ONE (10:30)
[2022-05-24] MEDS ORDERED: HYDROmorphone HCL 2 MG/ML VL/or syr IV PRN (10:30)
[2022-05-24] MEDS ORDERED: HYDROmorphone HCL 2 MG/ML VL/or syr ONE (10:34)
[2022-05-24] MEDS: fentaNYL Drip 2500mCg/250mlNS 250 ML IV SCH (11:00)
[2022-05-24] MEDS: ATORVASTATIN 20 MG TAB PO SCH (22:00)
[2022-05-25] VITALS (14 sets, daily range): BP systolic 93–147; BP diastolic 41–87
[2022-05-25] MEDS: HYDROmorphone HCL 2 MG/ML VL/or syr IV PRN (00:34)
[2022-05-25] MEDS: MIDAZOLAM DRIP 50 mg/50mL 50 ML IV SCH (02:30)
[2022-05-25] MEDS: PROPOFOL 100 ML IV SCH (02:45)
[2022-05-25 04:06] LABS: Albumin 2.5 g/dL (3.4-5.0); Calcium 8.2 mg/dL (8.5-10.1); Potassium 3.8 mmol/L (3.5-5.1)
[2022-05-25 04:09] LABS: BUN/Creatinine Ratio 27.1; Bilirubin, Total 0.8 mg/dL (0.2-1.0); Total Protein 5.5 g/dL (6.4-8.2)
[2022-05-25 04:17] LABS: Basophils # (auto) 0.1 10 ^3/uL (0-0.2); Basophils % (auto) 0.5 % (0.0-2.0); Eosinophils # (auto) 0 10 ^3/uL (0-0.8); Eosinophils % (auto) 0.2 % (0.0-7.0); Hematocrit 32.2 % (41.0-53.0); Lymphocytes # (auto) 1.2 10 ^3/uL (0.4-5.4); Lymphocytes % (auto) 9.4 % (10.0-50.0); Mean Corpuscular Hemoglobin 30.1 pg (28.0-32.0); Mean Corpuscular Hgb Conc. 34.3 g/dL (32.0-36.0); Mean Corpuscular Volume 87.8 fL (80.0-100.0); Monocytes # (auto) 0.8 10 ^3/uL (0-1.3); Monocytes % (auto) 5.8 % (0.0-12.0); Neutrophils # (auto) 11.1 10 ^3/uL (1.6-8.6); Neutrophils % (auto) 84.1 % (37.0-80.0); Nucleated Red Blood Cells % 0.1 %; Red Blood Cells 3.67 10^6/uL (4.5-5.90); Red Cell Distribution Width 15.2 % (11.8-14.3); White Blood Cell 13.2 10^3/uL (4.4-10.8)
[2022-05-25] MEDS: AMIODARONE 450mg/250ml AE 250 ML IV SCH (07:45)
[2022-05-25] MEDS: fentaNYL Drip 2500mCg/250mlNS 250 ML IV SCH (08:45)
[2022-05-25] MEDS: IPRATROPIUM BROM 0.5 MG/2.5ML INH SOL NEB SCH ×5 (09:18→23:50)
[2022-05-25] MEDS: ALBUTEROL SULF 2.5 MG/0.5ML(0.5%) NEB SOLN NEB SCH ×5 (09:18→23:50)
[2022-05-25] MEDS: NOREPINEPHRINE 8 MG/250ML KIT 250 ML IV SCH (10:41)
[2022-05-25] MEDS: DexAMETHasone SOD PHOS 10MG/1ML VIAL INJ IV SCH (10:59)
[2022-05-25] MEDS: AZITHROMYCIN 500MG/ 250ML 250 ML IV SCH (10:59)
[2022-05-25] MEDS: ZINC SULFATE 220mg CAP or TAB NG SCH (10:59)
[2022-05-25] MEDS: PANTOPRAZOLE 40 MG/10 ML VIAL INJ IV SCH (10:59)
[2022-05-25] MEDS: ENOXAPARIN SOD 30 MG/0.3 ML SYRINGE SC SCH (11:00)
[2022-05-25] MEDS: CLOPIDOGREL BISULFATE 75 MG TAB PO SCH (11:00)
[2022-05-25] MEDS: CHOLECALCIFEROL (VITD3) 2,000 UNIT CAP/TAB PO SCH (11:00)
[2022-05-25] MEDS: ASCORBIC ACID 500 MG TAB PO SCH ×2 (11:00→22:02)
[2022-05-25] MEDS: ASPirin 81 mg TAB PO SCH (11:00)
[2022-05-25] MEDS ORDERED: AMIODARONE HCL 200 MG TAB PO ONE (15:30)
[2022-05-25] MEDS ORDERED: dilTIAZem 25 MG/5 ML VIAL IV ONE (16:45)
[2022-05-25] MEDS ORDERED: dilTIAZem HCL 50 MG/10 ML VIAL IV ONE (16:45)
[2022-05-25] MEDS ORDERED: HEPARIN SODIUM (PORCINE) 5000 UNITS/ML 1ML VIAL IV ONE (19:30)
[2022-05-25] MEDS ORDERED: METOPROLOL TARTRATE 25 MG TAB PO ONE (19:30)
[2022-05-25] MEDS ORDERED: HEPARIN DRIP/D5W 100UNITS/ML 250 ML IV SCH (19:30)
[2022-05-25 21:32] LABS: INR 1.12 (0.9-1.15); Partial Thromboplastin Time 32.1 sec (24.6-33.4)
[2022-05-25] MEDS: DOPamine 1600MCG/ML D5W 250 ML IV SCH (21:45)
[2022-05-25] MEDS: ATORVASTATIN 20 MG TAB PO SCH (22:01)
[2022-05-25] MEDS: AMIODARONE HCL 200 MG TAB PO SCH (22:01)
[2022-05-25] MEDS: METOPROLOL TARTRATE 25 MG TAB PO SCH (22:02)
[2022-05-26] VITALS (9 sets, daily range): BP systolic 108–150; BP diastolic 48–74
[2022-05-26] MEDS: PROPOFOL 100 ML IV SCH (02:17)
[2022-05-26] MEDS: MIDAZOLAM DRIP 50 mg/50mL 50 ML IV SCH ×2 (02:17→22:15)
[2022-05-26 03:40] LABS: Basophils # (auto) 0.1 10 ^3/uL (0-0.2); Basophils % (auto) 0.5 % (0.0-2.0); Eosinophils # (auto) 0 10 ^3/uL (0-0.8); Hematocrit 33.6 % (41.0-53.0); Lymphocytes # (auto) 1.1 10 ^3/uL (0.4-5.4); Lymphocytes % (auto) 10.7 % (10.0-50.0); Mean Corpuscular Hgb Conc. 32.9 g/dL (32.0-36.0); Mean Corpuscular Volume 88.2 fL (80.0-100.0); Monocytes # (auto) 0.7 10 ^3/uL (0-1.3); Monocytes % (auto) 6.3 % (0.0-12.0); Neutrophils # (auto) 8.9 10 ^3/uL (1.6-8.6); Neutrophils % (auto) 82.5 % (37.0-80.0); Nucleated Red Blood Cells % 0.1 %; Red Blood Cells 3.81 10^6/uL (4.5-5.90); Red Cell Distribution Width 15.3 % (11.8-14.3); White Blood Cell 10.7 10^3/uL (4.4-10.8)
[2022-05-26 03:59] LABS: Albumin 2.4 g/dL (3.4-5.0); Calcium 8.6 mg/dL (8.5-10.1); Potassium 3.8 mmol/L (3.5-5.1)
[2022-05-26 04:00] LABS: INR 1.11 (0.9-1.15); Partial Thromboplastin Time 35.1 sec (24.6-33.4)
[2022-05-26 04:02] LABS: Total Protein 5.4 g/dL (6.4-8.2)
[2022-05-26] MEDS ORDERED: HEPARIN DRIP/D5W 100UNITS/ML 250 ML IV SCH ×2 (04:45→12:50)
[2022-05-26] MEDS ORDERED: HEPARIN SODIUM (PORCINE) 5000 UNITS/ML 1ML VIAL IV ONE (04:45)
[2022-05-26] MEDS: IPRATROPIUM BROM 0.5 MG/2.5ML INH SOL NEB SCH ×4 (06:44→23:43)
[2022-05-26] MEDS: ALBUTEROL SULF 2.5 MG/0.5ML(0.5%) NEB SOLN NEB SCH ×4 (06:44→23:43)
[2022-05-26] MEDS: fentaNYL Drip 2500mCg/250mlNS 250 ML IV SCH (08:45)
[2022-05-26] MEDS: PANTOPRAZOLE 40 MG/10 ML VIAL INJ IV SCH (10:21)
[2022-05-26] MEDS: AZITHROMYCIN 500MG/ 250ML 250 ML IV SCH (10:21)
[2022-05-26] MEDS: DexAMETHasone SOD PHOS 10MG/1ML VIAL INJ IV SCH (10:21)
[2022-05-26] MEDS: ASCORBIC ACID 500 MG TAB PO SCH ×2 (10:22→22:00)
[2022-05-26] MEDS: ZINC SULFATE 220mg CAP or TAB NG SCH (10:22)
[2022-05-26] MEDS: ENOXAPARIN SOD 30 MG/0.3 ML SYRINGE SC SCH (10:22)
[2022-05-26] MEDS: CLOPIDOGREL BISULFATE 75 MG TAB PO SCH (10:22)
[2022-05-26] MEDS: AMIODARONE HCL 200 MG TAB PO SCH ×2 (10:22→22:00)
[2022-05-26] MEDS: CHOLECALCIFEROL (VITD3) 2,000 UNIT CAP/TAB PO SCH (10:22)
[2022-05-26] MEDS: ASPirin 81 mg TAB PO SCH (10:22)
[2022-05-26] MEDS: METOPROLOL TARTRATE 25 MG TAB PO SCH ×2 (10:25→22:00)
[2022-05-26 11:43] LABS: INR 1.16 (0.9-1.15)
[2022-05-26 11:45] LABS: Partial Thromboplastin Time > 139.0 sec (24.6-33.4)
[2022-05-26 19:38] LABS: INR 1.14 (0.9-1.15); Partial Thromboplastin Time 40.9 sec (24.6-33.4)
[2022-05-26] MEDS: HEPARIN DRIP/D5W 100UNITS/ML 250 ML IV SCH ×2 (20:00→23:00)
[2022-05-26] MEDS: ATORVASTATIN 20 MG TAB PO SCH (22:00)
[2022-05-26] MEDS ORDERED: LORazepam 2MG/ML-1ML VIAL IV PRN (22:00)
[2022-05-26] MEDS ORDERED: LORazepam 2MG/ML-1ML VIAL ONE (22:21)
[2022-05-27] VITALS (101 sets, daily range): BP systolic 84–165; BP diastolic 7–97
[2022-05-27 02:10] LABS: Basophils # (auto) 0 10 ^3/uL (0-0.2); Eosinophils # (auto) 0 10 ^3/uL (0-0.8); Eosinophils % (auto) 0.3 % (0.0-7.0); Hematocrit 36.3 % (41.0-53.0); Hemoglobin 12.2 g/dL (13.5-17.5); Lymphocytes # (auto) 0.2 10 ^3/uL (0.4-5.4); Lymphocytes % (auto) 1.5 % (10.0-50.0); Mean Corpuscular Hgb Conc. 33.5 g/dL (32.0-36.0); Mean Corpuscular Volume 89.6 fL (80.0-100.0); Monocytes # (auto) 0.5 10 ^3/uL (0-1.3); Monocytes % (auto) 3.7 % (0.0-12.0); Neutrophils % (auto) 94.5 % (37.0-80.0); Red Blood Cells 4.05 10^6/uL (4.5-5.90); Red Cell Distribution Width 15.6 % (11.8-14.3); White Blood Cell 13.8 10^3/uL (4.4-10.8)
[2022-05-27 02:18] LABS: Albumin 2.3 g/dL (3.4-5.0); BUN/Creatinine Ratio 27.9; Calcium 8.1 mg/dL (8.5-10.1); Potassium 4.8 mmol/L (3.5-5.1)
[2022-05-27 02:21] LABS: Bilirubin, Total 0.9 mg/dL (0.2-1.0); Total Protein 6.1 g/dL (6.4-8.2)
[2022-05-27 02:51] LABS: INR 1.23 (0.9-1.15)
[2022-05-27] MEDS ORDERED: ETOMIDATE (2MG/ML) 20ML VIAL IV ONE (03:51)
[2022-05-27] MEDS ORDERED: SUCCINYLCHOLINE CHLORIDE 20 MG/ML 10ML VIAL IV ONE (03:52)
[2022-05-27] MEDS ORDERED: fentaNYL Drip 2500mCg/250mlNS 250 ML IV ONE (04:10)
[2022-05-27] MEDS ORDERED: PROPOFOL 100 ML IV ONE (04:20)
[2022-05-27] MEDS: PROPOFOL 100 ML IV SCH (04:30)
[2022-05-27] MEDS ORDERED: NOREPINEPHRINE 8 MG/250ML KIT 250 ML IV ONE (04:35)
[2022-05-27] MEDS: fentaNYL Drip 2500mCg/250mlNS 250 ML IV SCH ×3 (05:39→22:58)
[2022-05-27] MEDS: MIDAZOLAM DRIP 50 mg/50mL 50 ML IV SCH ×4 (05:44→23:35)
[2022-05-27] MEDS: NOREPINEPHRINE 8 MG/250ML KIT 250 ML IV SCH ×2 (05:44→18:58)
[2022-05-27] MEDS: IPRATROPIUM BROM 0.5 MG/2.5ML INH SOL NEB SCH ×3 (06:05→18:44)
[2022-05-27] MEDS: ALBUTEROL SULF 2.5 MG/0.5ML(0.5%) NEB SOLN NEB SCH ×3 (06:05→18:44)
[2022-05-27 08:45] LABS: INR 1.29 (0.9-1.15); Partial Thromboplastin Time 129.1 sec (24.6-33.4)
[2022-05-27] MEDS: CLOPIDOGREL BISULFATE 75 MG TAB PO SCH (09:42)
[2022-05-27] MEDS: ZINC SULFATE 220mg CAP or TAB NG SCH (09:42)
[2022-05-27] MEDS: ASPirin 81 mg TAB PO SCH (09:43)
[2022-05-27] MEDS: DexAMETHasone SOD PHOS 10MG/1ML VIAL INJ IV SCH (09:43)
[2022-05-27] MEDS: ASCORBIC ACID 500 MG TAB PO SCH ×2 (09:43→22:51)
[2022-05-27] MEDS: AZITHROMYCIN 500MG/ 250ML 250 ML IV SCH (09:43)
[2022-05-27] MEDS: CHOLECALCIFEROL (VITD3) 2,000 UNIT CAP/TAB PO SCH (09:43)
[2022-05-27] MEDS: PANTOPRAZOLE 40 MG/10 ML VIAL INJ IV SCH (09:43)
[2022-05-27 09:45] LABS: Basophils # (auto) 0 10 ^3/uL (0-0.2); Basophils % (auto) 0.1 % (0.0-2.0); Eosinophils # (auto) 0 10 ^3/uL (0-0.8); Hematocrit 32.8 % (41.0-53.0); Hemoglobin 10.6 g/dL (13.5-17.5); Lymphocytes # (auto) 0.5 10 ^3/uL (0.4-5.4); Lymphocytes % (auto) 3.1 % (10.0-50.0); Mean Corpuscular Hemoglobin 28.8 pg (28.0-32.0); Mean Corpuscular Hgb Conc. 32.2 g/dL (32.0-36.0); Mean Corpuscular Volume 89.4 fL (80.0-100.0); Monocytes # (auto) 0.5 10 ^3/uL (0-1.3); Monocytes % (auto) 3.5 % (0.0-12.0); Neutrophils # (auto) 14.6 10 ^3/uL (1.6-8.6); Neutrophils % (auto) 93.3 % (37.0-80.0); Red Blood Cells 3.67 10^6/uL (4.5-5.90); Red Cell Distribution Width 15.9 % (11.8-14.3); White Blood Cell 15.6 10^3/uL (4.4-10.8)
[2022-05-27 09:56] LABS: Albumin 1.9 g/dL (3.4-5.0); Calcium 7.6 mg/dL (8.5-10.1); Potassium 4.2 mmol/L (3.5-5.1)
[2022-05-27] MEDS: ENOXAPARIN SOD 30 MG/0.3 ML SYRINGE SC SCH (09:57)
[2022-05-27] MEDS: METOPROLOL TARTRATE 25 MG TAB PO SCH ×2 (09:57→22:00)
[2022-05-27] MEDS: AMIODARONE HCL 200 MG TAB PO SCH ×2 (09:57→22:49)
[2022-05-27 09:59] LABS: BUN/Creatinine Ratio 26.3; Bilirubin, Total 0.7 mg/dL (0.2-1.0); Total Protein 5.2 g/dL (6.4-8.2)
[2022-05-27] MEDS ORDERED: ISOPROTERENOL HCL INJECTION 1 MG in D5W 5% 250 ML IV SCH ×2 (10:15→13:45)
[2022-05-27 15:35] LABS: INR 1.13 (0.9-1.15); Partial Thromboplastin Time 31.6 sec (24.6-33.4)
[2022-05-27] MEDS ORDERED: LIDOCAINE 1% (LOCAL ANESTH.) PF 5ml SDV ID ONE (16:15)
[2022-05-27] MEDS: SODIUM CHLOR 0.9% PF (SALINE LOCK) 10ML VIAL/SYR IV SCH (22:00)
[2022-05-27] MEDS: ATORVASTATIN 20 MG TAB PO SCH (22:50)
[2022-05-28] VITALS (103 sets, daily range): BP systolic 89–152; BP diastolic 40–54
[2022-05-28] MEDS: IPRATROPIUM BROM 0.5 MG/2.5ML INH SOL NEB SCH ×4 (00:29→18:45)
[2022-05-28] MEDS: ALBUTEROL SULF 2.5 MG/0.5ML(0.5%) NEB SOLN NEB SCH ×4 (00:29→18:45)
[2022-05-28] MEDS: NOREPINEPHRINE 8 MG/250ML KIT 250 ML IV SCH (03:01)
[2022-05-28] MEDS: DOPamine 1600MCG/ML D5W 250 ML IV SCH ×2 (04:12→16:50)
[2022-05-28] MEDS: MIDAZOLAM DRIP 50 mg/50mL 50 ML IV SCH ×2 (04:23→22:25)
[2022-05-28] MEDS: PROPOFOL 100 ML IV SCH (04:30)
[2022-05-28 07:04] LABS: Basophils # (auto) 0 10 ^3/uL (0-0.2); Basophils % (auto) 0.1 % (0.0-2.0); Eosinophils # (auto) 0 10 ^3/uL (0-0.8); Hematocrit 28.1 % (41.0-53.0); Hemoglobin 9.3 g/dL (13.5-17.5); Lymphocytes # (auto) 0.3 10 ^3/uL (0.4-5.4); Lymphocytes % (auto) 3.4 % (10.0-50.0); Mean Corpuscular Hemoglobin 29.8 pg (28.0-32.0); Mean Corpuscular Hgb Conc. 33.2 g/dL (32.0-36.0); Mean Corpuscular Volume 89.7 fL (80.0-100.0); Monocytes # (auto) 0.2 10 ^3/uL (0-1.3); Monocytes % (auto) 2.6 % (0.0-12.0); Neutrophils # (auto) 8.7 10 ^3/uL (1.6-8.6); Neutrophils % (auto) 93.9 % (37.0-80.0); Nucleated Red Blood Cells % 0.1 %; Red Blood Cells 3.14 10^6/uL (4.5-5.90); Red Cell Distribution Width 15.9 % (11.8-14.3); White Blood Cell 9.2 10^3/uL (4.4-10.8)
[2022-05-28 07:22] LABS: Albumin 1.9 g/dL (3.4-5.0); Calcium 8.2 mg/dL (8.5-10.1); Potassium 4.7 mmol/L (3.5-5.1)
[2022-05-28 07:24] LABS: BUN/Creatinine Ratio 26.7
[2022-05-28 07:27] LABS: Bilirubin, Total 0.4 mg/dL (0.2-1.0); Total Protein 5.4 g/dL (6.4-8.2)
[2022-05-28] MEDS: DexAMETHasone SOD PHOS 10MG/1ML VIAL INJ IV SCH (09:57)
[2022-05-28] MEDS: PANTOPRAZOLE 40 MG/10 ML VIAL INJ IV SCH (09:57)
[2022-05-28] MEDS: ASCORBIC ACID 500 MG TAB PO SCH ×2 (09:57→22:25)
[2022-05-28] MEDS: ZINC SULFATE 220mg CAP or TAB NG SCH (09:57)
[2022-05-28] MEDS: AZITHROMYCIN 500MG/ 250ML 250 ML IV SCH (09:57)
[2022-05-28] MEDS: ASPirin 81 mg TAB PO SCH (09:58)
[2022-05-28] MEDS: METOPROLOL TARTRATE 25 MG TAB PO SCH ×2 (09:58→22:00)
[2022-05-28] MEDS: AMIODARONE HCL 200 MG TAB PO SCH ×2 (09:58→22:25)
[2022-05-28] MEDS: CHOLECALCIFEROL (VITD3) 2,000 UNIT CAP/TAB PO SCH (10:00)
[2022-05-28] MEDS: SODIUM CHLOR 0.9% PF (SALINE LOCK) 10ML VIAL/SYR IV SCH ×2 (10:00→22:27)
[2022-05-28] MEDS: ENOXAPARIN SOD 30 MG/0.3 ML SYRINGE SC SCH (10:00)
[2022-05-28] MEDS: CLOPIDOGREL BISULFATE 75 MG TAB PO SCH (10:00)
[2022-05-28] MEDS: fentaNYL Drip 2500mCg/250mlNS 250 ML IV SCH (14:37)
[2022-05-28] MEDS: ATORVASTATIN 20 MG TAB PO SCH (22:25)
[2022-05-28] MEDS: QUEtiapine FUMARATE 25 MG TAB PO SCH (22:25)
[2022-05-29] VITALS (103 sets, daily range): BP systolic 101–137; BP diastolic 36–51
[2022-05-29] MEDS: IPRATROPIUM BROM 0.5 MG/2.5ML INH SOL NEB SCH ×4 (00:10→18:24)
[2022-05-29] MEDS: ALBUTEROL SULF 2.5 MG/0.5ML(0.5%) NEB SOLN NEB SCH ×4 (00:10→18:24)
[2022-05-29] MEDS: MIDAZOLAM DRIP 50 mg/50mL 50 ML IV SCH ×3 (04:30→21:08)
[2022-05-29] MEDS: PROPOFOL 100 ML IV SCH (04:30)
[2022-05-29] MEDS: NOREPINEPHRINE 8 MG/250ML KIT 250 ML IV SCH (04:45)
[2022-05-29 07:47] LABS: Albumin 1.8 g/dL (3.4-5.0); Calcium 8.4 mg/dL (8.5-10.1); Potassium 4.7 mmol/L (3.5-5.1)
[2022-05-29 07:50] LABS: BUN/Creatinine Ratio 28.4; Bilirubin, Total 0.5 mg/dL (0.2-1.0); Total Protein 5.2 g/dL (6.4-8.2)
[2022-05-29] MEDS ORDERED: TPN PER PHARMACY 0 ML IV SCH (08:30)
[2022-05-29 08:33] LABS: Basophils # (auto) 0 10 ^3/uL (0-0.2); Basophils % (auto) 0.1 % (0.0-2.0); Eosinophils # (auto) 0 10 ^3/uL (0-0.8); Hematocrit 27.5 % (41.0-53.0); Lymphocytes # (auto) 0.3 10 ^3/uL (0.4-5.4); Mean Corpuscular Hemoglobin 29.3 pg (28.0-32.0); Mean Corpuscular Hgb Conc. 32.9 g/dL (32.0-36.0); Mean Corpuscular Volume 88.9 fL (80.0-100.0); Monocytes # (auto) 0.2 10 ^3/uL (0-1.3); Neutrophils # (auto) 5.2 10 ^3/uL (1.6-8.6); Neutrophils % (auto) 89.9 % (37.0-80.0); Red Blood Cells 3.09 10^6/uL (4.5-5.90); Red Cell Distribution Width 15.7 % (11.8-14.3); White Blood Cell 5.8 10^3/uL (4.4-10.8)
[2022-05-29] MEDS: DexAMETHasone SOD PHOS 10MG/1ML VIAL INJ IV SCH (09:43)
[2022-05-29] MEDS: PANTOPRAZOLE 40 MG/10 ML VIAL INJ IV SCH (09:43)
[2022-05-29] MEDS: CLOPIDOGREL BISULFATE 75 MG TAB PO SCH (09:44)
[2022-05-29] MEDS: CHOLECALCIFEROL (VITD3) 2,000 UNIT CAP/TAB PO SCH (09:44)
[2022-05-29] MEDS: AZITHROMYCIN 500MG/ 250ML 250 ML IV SCH (09:44)
[2022-05-29] MEDS: ZINC SULFATE 220mg CAP or TAB NG SCH (09:44)
[2022-05-29] MEDS: ASCORBIC ACID 500 MG TAB PO SCH ×2 (09:44→23:02)
[2022-05-29] MEDS: QUEtiapine FUMARATE 25 MG TAB PO SCH ×2 (09:44→23:02)
[2022-05-29] MEDS: ENOXAPARIN SOD 30 MG/0.3 ML SYRINGE SC SCH (09:44)
[2022-05-29] MEDS: ASPirin 81 mg TAB PO SCH (09:44)
[2022-05-29 09:53] LABS: Magnesium 2.3 mg/dL (1.6-2.6); Phosphorus 2.6 mg/dL (2.5-4.90)
[2022-05-29] MEDS: SODIUM CHLOR 0.9% PF (SALINE LOCK) 10ML VIAL/SYR IV SCH ×2 (10:13→22:00)
[2022-05-29] MEDS ORDERED: DEXTROSE (50%) 50ML SYRG IV SCH (20:00)
[2022-05-29] MEDS ORDERED: PPN PER PHARMACY IV NR ×6 (20:00)
[2022-05-29] MEDS: PPN PER PHARMACY IV NR ×7 (21:11)
[2022-05-29] MEDS: ATORVASTATIN 20 MG TAB PO SCH (23:01)
[2022-05-30] VITALS (107 sets, daily range): BP systolic 108–143; BP diastolic 40–62
[2022-05-30] MEDS: IPRATROPIUM BROM 0.5 MG/2.5ML INH SOL NEB SCH ×4 (00:36→18:39)
[2022-05-30] MEDS: ALBUTEROL SULF 2.5 MG/0.5ML(0.5%) NEB SOLN NEB SCH ×4 (00:36→18:39)
[2022-05-30] MEDS: MIDAZOLAM DRIP 50 mg/50mL 50 ML IV SCH ×3 (04:30→17:58)
[2022-05-30] MEDS: PROPOFOL 100 ML IV SCH (04:30)
[2022-05-30] MEDS: NOREPINEPHRINE 8 MG/250ML KIT 250 ML IV SCH (04:45)
[2022-05-30] MEDS: ACCU-CHEK COMFORT CURVE STRIP VI SCH ×4 (06:00→17:55)
[2022-05-30] MEDS: InsuLIN REG 1unit/0.01ml Soln (100units/ml) SC SCH ×4 (06:00→17:55)
[2022-05-30 07:27] LABS: Potassium 4.2 mmol/L (3.5-5.1)
[2022-05-30 07:33] LABS: Albumin 1.8 g/dL (3.4-5.0); BUN/Creatinine Ratio 46.7; Bilirubin, Total 0.7 mg/dL (0.2-1.0); Calcium 7.8 mg/dL (8.5-10.1); Total Protein 5.1 g/dL (6.4-8.2)
[2022-05-30 07:47] LABS: Basophils # (auto) 0 10 ^3/uL (0-0.2); Basophils % (auto) 0.3 % (0.0-2.0); Eosinophils # (auto) 0 10 ^3/uL (0-0.8); Hematocrit 27.5 % (41.0-53.0); Lymphocytes # (auto) 0.5 10 ^3/uL (0.4-5.4); Lymphocytes % (auto) 7.4 % (10.0-50.0); Mean Corpuscular Hemoglobin 29.3 pg (28.0-32.0); Mean Corpuscular Hgb Conc. 32.6 g/dL (32.0-36.0); Mean Corpuscular Volume 89.9 fL (80.0-100.0); Monocytes # (auto) 0.4 10 ^3/uL (0-1.3); Monocytes % (auto) 5.4 % (0.0-12.0); Neutrophils % (auto) 86.9 % (37.0-80.0); Nucleated Red Blood Cells % 0.1 %; Red Blood Cells 3.06 10^6/uL (4.5-5.90); Red Cell Distribution Width 15.9 % (11.8-14.3); White Blood Cell 6.9 10^3/uL (4.4-10.8)
[2022-05-30 08:38] LABS: Magnesium 2.2 mg/dL (1.6-2.6); Phosphorus 2.8 mg/dL (2.5-4.90)
[2022-05-30] MEDS: PANTOPRAZOLE 40 MG/10 ML VIAL INJ IV SCH (09:31)
[2022-05-30] MEDS: ENOXAPARIN SOD 30 MG/0.3 ML SYRINGE SC SCH (09:32)
[2022-05-30] MEDS: DexAMETHasone SOD PHOS 10MG/1ML VIAL INJ IV SCH (09:32)
[2022-05-30] MEDS: CLOPIDOGREL BISULFATE 75 MG TAB PO SCH (09:32)
[2022-05-30] MEDS: ZINC SULFATE 220mg CAP or TAB NG SCH (09:32)
[2022-05-30] MEDS: ASPirin 81 mg TAB PO SCH (09:32)
[2022-05-30] MEDS: QUEtiapine FUMARATE 25 MG TAB PO SCH ×2 (09:34→22:27)
[2022-05-30] MEDS: ASCORBIC ACID 500 MG TAB PO SCH ×2 (09:34→22:27)
[2022-05-30] MEDS: CHOLECALCIFEROL (VITD3) 2,000 UNIT CAP/TAB PO SCH (09:34)
[2022-05-30] MEDS: AZITHROMYCIN 500MG/ 250ML 250 ML IV SCH (09:35)
[2022-05-30] MEDS: SODIUM CHLOR 0.9% PF (SALINE LOCK) 10ML VIAL/SYR IV SCH ×2 (10:07→22:27)
[2022-05-30] MEDS: DOPamine 1600MCG/ML D5W 250 ML IV SCH ×2 (13:00→14:11)
[2022-05-30] MEDS: fentaNYL Drip 2500mCg/250mlNS 250 ML IV SCH ×2 (16:24)
[2022-05-30] MEDS: PPN PER PHARMACY IV NR ×7 (19:54)
[2022-05-30] MEDS ORDERED: TPN PER PHARMACY IV NR ×10 (20:00)
[2022-05-30] MEDS: ATORVASTATIN 20 MG TAB PO SCH (22:27)
[2022-05-31] VITALS (103 sets, daily range): BP systolic 114–194; BP diastolic 40–82
[2022-05-31] MEDS: ALBUTEROL SULF 2.5 MG/0.5ML(0.5%) NEB SOLN NEB SCH ×3 (00:10→23:50)
[2022-05-31] MEDS: IPRATROPIUM BROM 0.5 MG/2.5ML INH SOL NEB SCH ×3 (00:10→23:50)
[2022-05-31] MEDS: MIDAZOLAM DRIP 50 mg/50mL 50 ML IV SCH ×2 (01:25→19:55)
[2022-05-31] MEDS: ACCU-CHEK COMFORT CURVE STRIP VI SCH ×4 (01:26→17:27)
[2022-05-31] MEDS: PROPOFOL 100 ML IV SCH (04:30)
[2022-05-31] MEDS: NOREPINEPHRINE 8 MG/250ML KIT 250 ML IV SCH (04:45)
[2022-05-31 06:00] LABS: Potassium 4.5 mmol/L (3.5-5.1)
[2022-05-31] MEDS: InsuLIN REG 1unit/0.01ml Soln (100units/ml) SC SCH ×4 (06:00→17:28)
[2022-05-31 06:04] LABS: Albumin 1.9 g/dL (3.4-5.0); Calcium 8.2 mg/dL (8.5-10.1); Magnesium 2.4 mg/dL (1.6-2.6)
[2022-05-31 06:07] LABS: Bilirubin, Total 0.3 mg/dL (0.2-1.0); Total Protein 5.1 g/dL (6.4-8.2)
[2022-05-31] MEDS: ASCORBIC ACID 500 MG TAB PO SCH ×2 (10:00→21:49)
[2022-05-31] MEDS: ENOXAPARIN SOD 30 MG/0.3 ML SYRINGE SC SCH (10:00)
[2022-05-31] MEDS: PANTOPRAZOLE 40 MG/10 ML VIAL INJ IV SCH (10:00)
[2022-05-31] MEDS: DexAMETHasone SOD PHOS 10MG/1ML VIAL INJ IV SCH (10:00)
[2022-05-31] MEDS: ZINC SULFATE 220mg CAP or TAB NG SCH (10:00)
[2022-05-31] MEDS: CHOLECALCIFEROL (VITD3) 2,000 UNIT CAP/TAB PO SCH (10:00)
[2022-05-31] MEDS: CLOPIDOGREL BISULFATE 75 MG TAB PO SCH (10:00)
[2022-05-31] MEDS: ASPirin 81 mg TAB PO SCH (10:00)
[2022-05-31] MEDS: QUEtiapine FUMARATE 25 MG TAB PO SCH ×2 (10:00→21:50)
[2022-05-31] MEDS: SODIUM CHLOR 0.9% PF (SALINE LOCK) 10ML VIAL/SYR IV SCH ×2 (10:01→21:51)
[2022-05-31] MEDS: DOPamine 1600MCG/ML D5W 250 ML IV SCH (11:05)
[2022-05-31] MEDS: HYDROmorphone HCL 2 MG/ML VL/or syr IV PRN (18:02)
[2022-05-31] MEDS: fentaNYL Drip 2500mCg/250mlNS 250 ML IV SCH (18:33)
[2022-05-31] MEDS ORDERED: TPN PER PHARMACY IV NR ×10 (20:00)
[2022-05-31] MEDS: ATORVASTATIN 20 MG TAB PO SCH (21:51)
[2022-06-01] VITALS (91 sets, daily range): BP systolic 96–170; BP diastolic 40–71
[2022-06-01] MEDS: ACCU-CHEK COMFORT CURVE STRIP VI SCH ×5 (00:34→23:08)
[2022-06-01] MEDS: InsuLIN REG 1unit/0.01ml Soln (100units/ml) SC SCH ×5 (00:36→23:05)
[2022-06-01] MEDS: PROPOFOL 100 ML IV SCH ×3 (01:21→20:11)
[2022-06-01] MEDS: MIDAZOLAM DRIP 50 mg/50mL 50 ML IV SCH ×2 (03:51→20:44)
[2022-06-01] MEDS: NOREPINEPHRINE 8 MG/250ML KIT 250 ML IV SCH (04:45)
[2022-06-01] MEDS: ALBUTEROL SULF 2.5 MG/0.5ML(0.5%) NEB SOLN NEB SCH ×3 (06:08→18:37)
[2022-06-01] MEDS: IPRATROPIUM BROM 0.5 MG/2.5ML INH SOL NEB SCH ×3 (06:08→18:37)
[2022-06-01] MEDS: fentaNYL Drip 2500mCg/250mlNS 250 ML IV SCH ×2 (06:18→20:10)
[2022-06-01 06:43] LABS: Basophils # (auto) 0 10 ^3/uL (0-0.2); Basophils % (auto) 0.2 % (0.0-2.0); Eosinophils # (auto) 0 10 ^3/uL (0-0.8); Eosinophils % (auto) 0.1 % (0.0-7.0); Hematocrit 30.2 % (41.0-53.0); Hemoglobin 10.1 g/dL (13.5-17.5); Lymphocytes # (auto) 0.5 10 ^3/uL (0.4-5.4); Lymphocytes % (auto) 6.8 % (10.0-50.0); Mean Corpuscular Hemoglobin 29.2 pg (28.0-32.0); Mean Corpuscular Hgb Conc. 33.3 g/dL (32.0-36.0); Mean Corpuscular Volume 87.7 fL (80.0-100.0); Monocytes # (auto) 0.4 10 ^3/uL (0-1.3); Monocytes % (auto) 5.2 % (0.0-12.0); Neutrophils % (auto) 87.7 % (37.0-80.0); Red Blood Cells 3.44 10^6/uL (4.5-5.90); Red Cell Distribution Width 15.2 % (11.8-14.3); White Blood Cell 7.9 10^3/uL (4.4-10.8)
[2022-06-01 06:58] LABS: BUN/Creatinine Ratio 66.7; Calcium 8.2 mg/dL (8.5-10.1); Magnesium 2.4 mg/dL (1.6-2.6)
[2022-06-01 07:11] LABS: Bilirubin, Total 0.3 mg/dL (0.2-1.0); Phosphorus 3.6 mg/dL (2.5-4.90); Total Protein 5.2 g/dL (6.4-8.2)
[2022-06-01] MEDS: DOPamine 1600MCG/ML D5W 250 ML IV SCH (09:10)
[2022-06-01] MEDS: DexAMETHasone SOD PHOS 10MG/1ML VIAL INJ IV SCH (09:12)
[2022-06-01] MEDS: PANTOPRAZOLE 40 MG/10 ML VIAL INJ IV SCH (09:12)
[2022-06-01] MEDS: SODIUM CHLOR 0.9% PF (SALINE LOCK) 10ML VIAL/SYR IV SCH ×2 (09:13→20:07)
[2022-06-01 10:22] LABS: INR 1.08 (0.9-1.15); Partial Thromboplastin Time 28.9 sec (24.6-33.4)
[2022-06-01] MEDS ORDERED: SODIUM CHLORIDE LOCK 0 ML ONE ×2 (10:50→10:58)
[2022-06-01] MEDS ORDERED: fentaNYL CITRATE 100 MCG/2 ML VL ONE (10:51)
[2022-06-01] MEDS ORDERED: MIDAZOLAM HCL 5 MG/ML-1ML VIAL ONE (10:51)
[2022-06-01] MEDS ORDERED: diphenhdrAMINE HCL 50 MG/1 ML VL ONE (10:51)
[2022-06-01] MEDS ORDERED: EPINEPHrine HCL 1 MG/1 ML AMP ONE (10:58)
[2022-06-01] MEDS ORDERED: LIDOCAINE HCL 2% TOP JELLY 5ML TOP ONE (10:59)
[2022-06-01] MEDS ORDERED: GLYCOPYRROLATE 0.2 MG/ML 1ML VIAL ONE (10:59)
[2022-06-01] MEDS ORDERED: LIDOCAINE 2% (LOCAL ANESTH.) PF 5ml SDV ONE (11:03)
[2022-06-01] MEDS: ZINC SULFATE 220mg CAP or TAB NG SCH (12:01)
[2022-06-01] MEDS: QUEtiapine FUMARATE 25 MG TAB PO SCH ×2 (12:01→20:07)
[2022-06-01] MEDS: ASCORBIC ACID 500 MG TAB PO SCH ×2 (12:01→20:07)
[2022-06-01] MEDS: ENOXAPARIN SOD 30 MG/0.3 ML SYRINGE SC SCH (12:02)
[2022-06-01] MEDS: CHOLECALCIFEROL (VITD3) 2,000 UNIT CAP/TAB PO SCH (12:02)
[2022-06-01] MEDS: ASPirin 81 mg TAB PO SCH (12:02)
[2022-06-01] MEDS: CLOPIDOGREL BISULFATE 75 MG TAB PO SCH (12:02)
[2022-06-01] MEDS: ALBUMIN 25% 100 ML IV SCH ×2 (16:18→22:57)
[2022-06-01] MEDS ORDERED: TPN PER PHARMACY IV NR ×9 (20:00)
[2022-06-01] MEDS: ATORVASTATIN 20 MG TAB PO SCH (20:07)
[2022-06-02] VITALS (92 sets, daily range): BP systolic 103–166; BP diastolic 37–58
[2022-06-02] MEDS: IPRATROPIUM BROM 0.5 MG/2.5ML INH SOL NEB SCH ×2 (00:13→18:20)
[2022-06-02] MEDS: ALBUTEROL SULF 2.5 MG/0.5ML(0.5%) NEB SOLN NEB SCH ×2 (00:13→18:20)
[2022-06-02] MEDS: PROPOFOL 100 ML IV SCH ×4 (00:59→22:50)
[2022-06-02] MEDS: NOREPINEPHRINE 8 MG/250ML KIT 250 ML IV SCH (04:45)
[2022-06-02 05:25] LABS: Potassium 3.6 mmol/L (3.5-5.1)
[2022-06-02 05:40] LABS: Albumin 2.8 g/dL (3.4-5.0); BUN/Creatinine Ratio 67.5; Calcium 8.1 mg/dL (8.5-10.1); Magnesium 2.2 mg/dL (1.6-2.6); Total Protein 5.3 g/dL (6.4-8.2)
[2022-06-02 05:43] LABS: Bilirubin, Total 0.3 mg/dL (0.2-1.0); Phosphorus 2.4 mg/dL (2.5-4.90)
[2022-06-02] MEDS: InsuLIN REG 1unit/0.01ml Soln (100units/ml) SC SCH ×3 (06:00→18:17)
[2022-06-02] MEDS: ACCU-CHEK COMFORT CURVE STRIP VI SCH ×3 (06:02→18:17)
[2022-06-02] MEDS: ALBUMIN 25% 100 ML IV SCH (06:02)
[2022-06-02] MEDS: DOPamine 1600MCG/ML D5W 250 ML IV SCH (07:15)
[2022-06-02] MEDS: ASPirin 81 mg TAB PO SCH (10:00)
[2022-06-02] MEDS: QUEtiapine FUMARATE 25 MG TAB PO SCH ×2 (10:14→22:54)
[2022-06-02] MEDS: ENOXAPARIN SOD 30 MG/0.3 ML SYRINGE SC SCH (10:14)
[2022-06-02] MEDS: ASCORBIC ACID 500 MG TAB PO SCH ×2 (10:14→22:54)
[2022-06-02] MEDS: ZINC SULFATE 220mg CAP or TAB NG SCH (10:14)
[2022-06-02] MEDS: DexAMETHasone SOD PHOS 10MG/1ML VIAL INJ IV SCH (10:14)
[2022-06-02] MEDS: CHOLECALCIFEROL (VITD3) 2,000 UNIT CAP/TAB PO SCH (10:14)
[2022-06-02] MEDS: PANTOPRAZOLE 40 MG/10 ML VIAL INJ IV SCH (10:14)
[2022-06-02] MEDS: CLOPIDOGREL BISULFATE 75 MG TAB PO SCH (10:15)
[2022-06-02] MEDS ORDERED: POTASSIUM PHOSP 22MEQ(15MMOLE) in NS 100 ML IV ONE (11:15)
[2022-06-02] MEDS: SODIUM CHLOR 0.9% PF (SALINE LOCK) 10ML VIAL/SYR IV SCH ×2 (11:45→22:50)
[2022-06-02] MEDS: METOCLOPRAMIDE HCL 5MG/ml INJ 2ml VIAL IV SCH ×2 (14:43→22:54)
[2022-06-02] MEDS: fentaNYL Drip 2500mCg/250mlNS 250 ML IV SCH (18:34)
[2022-06-02] MEDS ORDERED: TPN PER PHARMACY IV NR ×10 (20:00)
[2022-06-02] MEDS: ATORVASTATIN 20 MG TAB PO SCH (22:54)
[2022-06-03] VITALS (100 sets, daily range): BP systolic 107–182; BP diastolic 36–65
[2022-06-03] MEDS: IPRATROPIUM BROM 0.5 MG/2.5ML INH SOL NEB SCH ×4 (00:22→18:23)
[2022-06-03] MEDS: ALBUTEROL SULF 2.5 MG/0.5ML(0.5%) NEB SOLN NEB SCH ×4 (00:22→18:23)
[2022-06-03] MEDS: InsuLIN REG 1unit/0.01ml Soln (100units/ml) SC SCH ×5 (00:24→23:29)
[2022-06-03] MEDS: MIDAZOLAM DRIP 50 mg/50mL 50 ML IV SCH ×2 (04:18→23:03)
[2022-06-03] MEDS: PROPOFOL 100 ML IV SCH (04:19)
[2022-06-03] MEDS: NOREPINEPHRINE 8 MG/250ML KIT 250 ML IV SCH (04:45)
[2022-06-03] MEDS: DOPamine 1600MCG/ML D5W 250 ML IV SCH (05:20)
[2022-06-03 05:33] LABS: Albumin 2.7 g/dL (3.4-5.0); Calcium 8.5 mg/dL (8.5-10.1); Magnesium 2.5 mg/dL (1.6-2.6); Potassium 4.3 mmol/L (3.5-5.1)
[2022-06-03 05:35] LABS: BUN/Creatinine Ratio 78.4
[2022-06-03 05:42] LABS: Bilirubin, Total 0.2 mg/dL (0.2-1.0); Phosphorus 3.6 mg/dL (2.5-4.90); Total Protein 5.2 g/dL (6.4-8.2)
[2022-06-03] MEDS: ACCU-CHEK COMFORT CURVE STRIP VI SCH ×5 (05:42→23:29)
[2022-06-03] MEDS: METOCLOPRAMIDE HCL 5MG/ml INJ 2ml VIAL IV SCH ×3 (05:42→23:02)
[2022-06-03] MEDS ORDERED: LABETALOL HCL 5 MG/ML 4ML SYRINGE IV PRN ×2 (09:15→09:30)
[2022-06-03] MEDS: CHOLECALCIFEROL (VITD3) 2,000 UNIT CAP/TAB PO SCH (09:51)
[2022-06-03] MEDS: PANTOPRAZOLE 40 MG/10 ML VIAL INJ IV SCH (09:51)
[2022-06-03] MEDS: DexAMETHasone SOD PHOS 10MG/1ML VIAL INJ IV SCH (09:51)
[2022-06-03] MEDS: QUEtiapine FUMARATE 25 MG TAB PO SCH ×2 (09:52→23:03)
[2022-06-03] MEDS: CLOPIDOGREL BISULFATE 75 MG TAB PO SCH (09:52)
[2022-06-03] MEDS: ENOXAPARIN SOD 30 MG/0.3 ML SYRINGE SC SCH (09:52)
[2022-06-03] MEDS: ASCORBIC ACID 500 MG TAB PO SCH ×2 (09:52→23:03)
[2022-06-03] MEDS: ZINC SULFATE 220mg CAP or TAB NG SCH (09:52)
[2022-06-03] MEDS: ASPirin 81 mg TAB PO SCH (10:00)
[2022-06-03] MEDS: SODIUM CHLOR 0.9% PF (SALINE LOCK) 10ML VIAL/SYR IV SCH ×2 (11:52→23:02)
[2022-06-03] MEDS ORDERED: TPN PER PHARMACY IV NR ×11 (20:00)
[2022-06-03] MEDS: ATORVASTATIN 20 MG TAB PO SCH (23:03)
[2022-06-04] VITALS (103 sets, daily range): BP systolic 95–186; BP diastolic 34–77
[2022-06-04] MEDS: ALBUTEROL SULF 2.5 MG/0.5ML(0.5%) NEB SOLN NEB SCH ×4 (00:12→18:23)
[2022-06-04] MEDS: IPRATROPIUM BROM 0.5 MG/2.5ML INH SOL NEB SCH ×4 (00:12→18:23)
[2022-06-04] MEDS: DOPamine 1600MCG/ML D5W 250 ML IV SCH (03:25)
[2022-06-04] MEDS: PROPOFOL 100 ML IV SCH ×3 (04:08→18:35)
[2022-06-04] MEDS: fentaNYL Drip 2500mCg/250mlNS 250 ML IV SCH ×2 (04:09→11:14)
[2022-06-04] MEDS: NOREPINEPHRINE 8 MG/250ML KIT 250 ML IV SCH (04:45)
[2022-06-04] MEDS: MIDAZOLAM DRIP 50 mg/50mL 50 ML IV SCH (05:49)
[2022-06-04] MEDS: METOCLOPRAMIDE HCL 5MG/ml INJ 2ml VIAL IV SCH ×3 (05:49→21:34)
[2022-06-04] MEDS: ACCU-CHEK COMFORT CURVE STRIP VI SCH ×4 (05:50→23:20)
[2022-06-04] MEDS: InsuLIN REG 1unit/0.01ml Soln (100units/ml) SC SCH ×4 (06:00→23:20)
[2022-06-04 06:58] LABS: Albumin 2.3 g/dL (3.4-5.0); Calcium 7.8 mg/dL (8.5-10.1); Magnesium 2.2 mg/dL (1.6-2.6); Potassium 4.3 mmol/L (3.5-5.1)
[2022-06-04 07:01] LABS: BUN/Creatinine Ratio 82.4; Bilirubin, Total 0.3 mg/dL (0.2-1.0); Phosphorus 2.4 mg/dL (2.5-4.90); Total Protein 4.8 g/dL (6.4-8.2)
[2022-06-04] MEDS ORDERED: LABETALOL HCL 5 MG/ML 4ML SYRINGE IV PRN (08:00)
[2022-06-04 09:05] LABS: Basophils # (auto) 0 10 ^3/uL (0-0.2); Basophils % (auto) 0.2 % (0.0-2.0); Eosinophils # (auto) 0 10 ^3/uL (0-0.8); Eosinophils % (auto) 0.1 % (0.0-7.0); Hematocrit 28.8 % (41.0-53.0); Hemoglobin 9.2 g/dL (13.5-17.5); Lymphocytes % (auto) 11.6 % (10.0-50.0); Mean Corpuscular Hemoglobin 29.4 pg (28.0-32.0); Monocytes # (auto) 0.5 10 ^3/uL (0-1.3); Monocytes % (auto) 5.9 % (0.0-12.0); Neutrophils # (auto) 6.8 10 ^3/uL (1.6-8.6); Neutrophils % (auto) 82.2 % (37.0-80.0); Nucleated Red Blood Cells % 0.1 %; Red Blood Cells 3.13 10^6/uL (4.5-5.90); Red Cell Distribution Width 15.9 % (11.8-14.3); White Blood Cell 8.3 10^3/uL (4.4-10.8)
[2022-06-04] MEDS: levoFLOXacin 500MG 100 ML IV SCH (09:36)
[2022-06-04] MEDS: SODIUM CHLOR 0.9% PF (SALINE LOCK) 10ML VIAL/SYR IV SCH ×2 (09:48→21:34)
[2022-06-04] MEDS: ZINC SULFATE 220mg CAP or TAB NG SCH (09:54)
[2022-06-04] MEDS: ASPirin 81 mg TAB PO SCH (09:54)
[2022-06-04] MEDS: CLOPIDOGREL BISULFATE 75 MG TAB PO SCH (09:54)
[2022-06-04] MEDS: CHOLECALCIFEROL (VITD3) 2,000 UNIT CAP/TAB PO SCH (09:55)
[2022-06-04] MEDS: ASCORBIC ACID 500 MG TAB PO SCH ×2 (09:55→21:34)
[2022-06-04] MEDS: QUEtiapine FUMARATE 25 MG TAB PO SCH ×2 (09:55→21:34)
[2022-06-04] MEDS: PANTOPRAZOLE 40 MG/10 ML VIAL INJ IV SCH (10:01)
[2022-06-04] MEDS: DexAMETHasone SOD PHOS 10MG/1ML VIAL INJ IV SCH (10:01)
[2022-06-04] MEDS: ENOXAPARIN SOD 30 MG/0.3 ML SYRINGE SC SCH (10:03)
[2022-06-04] MEDS ORDERED: SODIUM PHOSPHATES 20 MEQ in SODIUM CHL 0.9% 100 ML IV ONE (11:45)
[2022-06-04] MEDS: LABETALOL HCL 5 MG/ML 4ML SYRINGE IV PRN ×5 (15:30→20:42)
[2022-06-04] MEDS ORDERED: LACTULOSE 10g/15ml SOLN 473ML PR ONE (17:30)
[2022-06-04] MEDS ORDERED: LACTULOSE 20Gm/30ML SOLN NG ONE (17:45)
[2022-06-04] MEDS ORDERED: TPN PER PHARMACY IV NR ×9 (20:00)
[2022-06-04] MEDS: ATORVASTATIN 20 MG TAB PO SCH (21:34)
[2022-06-05] VITALS (100 sets, daily range): BP systolic 111–210; BP diastolic 43–78
[2022-06-05] MEDS: ALBUTEROL SULF 2.5 MG/0.5ML(0.5%) NEB SOLN NEB SCH ×3 (00:23→18:09)
[2022-06-05] MEDS: IPRATROPIUM BROM 0.5 MG/2.5ML INH SOL NEB SCH ×4 (00:23→18:09)
[2022-06-05] MEDS: fentaNYL Drip 2500mCg/250mlNS 250 ML IV SCH ×2 (00:29→12:10)
[2022-06-05] MEDS: DOPamine 1600MCG/ML D5W 250 ML IV SCH ×2 (01:30→23:35)
[2022-06-05] MEDS: PROPOFOL 100 ML IV SCH ×3 (03:34→22:36)
[2022-06-05] MEDS: LABETALOL HCL 5 MG/ML 4ML SYRINGE IV PRN ×4 (04:33→14:28)
[2022-06-05] MEDS: NOREPINEPHRINE 8 MG/250ML KIT 250 ML IV SCH (04:45)
[2022-06-05 05:26] LABS: Basophils # (auto) 0 10 ^3/uL (0-0.2); Basophils % (auto) 0.2 % (0.0-2.0); Eosinophils # (auto) 0 10 ^3/uL (0-0.8); Eosinophils % (auto) 0.3 % (0.0-7.0); Lymphocytes # (auto) 0.7 10 ^3/uL (0.4-5.4); Lymphocytes % (auto) 7.5 % (10.0-50.0); Mean Corpuscular Hemoglobin 30.9 pg (28.0-32.0); Mean Corpuscular Hgb Conc. 34.5 g/dL (32.0-36.0); Mean Corpuscular Volume 89.5 fL (80.0-100.0); Monocytes # (auto) 0.4 10 ^3/uL (0-1.3); Monocytes % (auto) 4.7 % (0.0-12.0); Neutrophils # (auto) 7.9 10 ^3/uL (1.6-8.6); Neutrophils % (auto) 87.3 % (37.0-80.0); Nucleated Red Blood Cells % 0.5 %; Red Blood Cells 3.24 10^6/uL (4.5-5.90); Red Cell Distribution Width 15.6 % (11.8-14.3)
[2022-06-05 05:46] LABS: Albumin 2.3 g/dL (3.4-5.0); Magnesium 2.4 mg/dL (1.6-2.6); Potassium 4.1 mmol/L (3.5-5.1)
[2022-06-05 05:51] LABS: BUN/Creatinine Ratio 73.7; Bilirubin, Total 0.4 mg/dL (0.2-1.0); Phosphorus 3.5 mg/dL (2.5-4.90); Total Protein 5.6 g/dL (6.4-8.2)
[2022-06-05] MEDS: InsuLIN REG 1unit/0.01ml Soln (100units/ml) SC SCH ×4 (06:00→23:27)
[2022-06-05] MEDS: ACCU-CHEK COMFORT CURVE STRIP VI SCH ×4 (06:00→23:27)
[2022-06-05 06:28] LABS: INR 0.97 (0.9-1.15); Partial Thromboplastin Time 25.2 sec (24.6-33.4)
[2022-06-05] MEDS: METOCLOPRAMIDE HCL 5MG/ml INJ 2ml VIAL IV SCH ×3 (07:51→22:43)
[2022-06-05] MEDS: PANTOPRAZOLE 40 MG/10 ML VIAL INJ IV SCH (08:59)
[2022-06-05] MEDS: ASPirin 81 mg TAB PO SCH (09:00)
[2022-06-05] MEDS: QUEtiapine FUMARATE 25 MG TAB PO SCH ×2 (09:00→22:43)
[2022-06-05] MEDS: ENOXAPARIN SOD 30 MG/0.3 ML SYRINGE SC SCH (09:00)
[2022-06-05] MEDS: CLOPIDOGREL BISULFATE 75 MG TAB PO SCH (09:01)
[2022-06-05] MEDS: CHOLECALCIFEROL (VITD3) 2,000 UNIT CAP/TAB PO SCH (09:01)
[2022-06-05] MEDS: ZINC SULFATE 220mg CAP or TAB NG SCH (09:01)
[2022-06-05] MEDS: ASCORBIC ACID 500 MG TAB PO SCH ×2 (09:01→22:43)
[2022-06-05] MEDS: DexAMETHasone SOD PHOS 10MG/1ML VIAL INJ IV SCH (09:01)
[2022-06-05] MEDS: levoFLOXacin 500MG 100 ML IV SCH (09:02)
[2022-06-05] MEDS: SODIUM CHLOR 0.9% PF (SALINE LOCK) 10ML VIAL/SYR IV SCH ×2 (10:00→22:00)
[2022-06-05] MEDS ORDERED: hydrALAZINE HCL 20 MG/ML VL IV PRN (13:15)
[2022-06-05] MEDS: MIDAZOLAM DRIP 50 mg/50mL 50 ML IV SCH (13:45)
[2022-06-05] MEDS ORDERED: TPN PER PHARMACY IV NR ×9 (20:00)
[2022-06-05] MEDS: ATORVASTATIN 20 MG TAB PO SCH (22:43)
[2022-06-06] VITALS (45 sets, daily range): BP systolic 92–203; BP diastolic 34–71
[2022-06-06] MEDS: IPRATROPIUM BROM 0.5 MG/2.5ML INH SOL NEB SCH ×4 (00:37→19:54)
[2022-06-06] MEDS: ALBUTEROL SULF 2.5 MG/0.5ML(0.5%) NEB SOLN NEB SCH ×4 (00:37→19:54)
[2022-06-06] MEDS: fentaNYL Drip 2500mCg/250mlNS 250 ML IV SCH ×2 (03:47→18:09)
[2022-06-06] MEDS: NOREPINEPHRINE 8 MG/250ML KIT 250 ML IV SCH (04:45)
[2022-06-06] MEDS: InsuLIN REG 1unit/0.01ml Soln (100units/ml) SC SCH ×4 (06:00→22:42)
[2022-06-06] MEDS: ACCU-CHEK COMFORT CURVE STRIP VI SCH ×4 (06:00→22:41)
[2022-06-06] MEDS: METOCLOPRAMIDE HCL 5MG/ml INJ 2ml VIAL IV SCH ×3 (06:47→22:00)
[2022-06-06] MEDS: PROPOFOL 100 ML IV SCH ×2 (07:00→15:31)
[2022-06-06 08:35] LABS: Basophils # (auto) 0 10 ^3/uL (0-0.2); Basophils % (auto) 0.3 % (0.0-2.0); Eosinophils # (auto) 0 10 ^3/uL (0-0.8); Eosinophils % (auto) 0.5 % (0.0-7.0); Hematocrit 30.6 % (41.0-53.0); Hemoglobin 10.2 g/dL (13.5-17.5); Lymphocytes # (auto) 1.2 10 ^3/uL (0.4-5.4); Lymphocytes % (auto) 14.7 % (10.0-50.0); Mean Corpuscular Hemoglobin 29.7 pg (28.0-32.0); Mean Corpuscular Hgb Conc. 33.4 g/dL (32.0-36.0); Mean Corpuscular Volume 88.8 fL (80.0-100.0); Monocytes # (auto) 0.5 10 ^3/uL (0-1.3); Neutrophils # (auto) 6.2 10 ^3/uL (1.6-8.6); Neutrophils % (auto) 78.5 % (37.0-80.0); Nucleated Red Blood Cells % 0.1 %; Red Blood Cells 3.45 10^6/uL (4.5-5.90); Red Cell Distribution Width 15.5 % (11.8-14.3); White Blood Cell 7.9 10^3/uL (4.4-10.8)
[2022-06-06 09:04] LABS: Potassium 3.8 mmol/L (3.5-5.1)
[2022-06-06 09:18] LABS: Albumin 2.2 g/dL (3.4-5.0); BUN/Creatinine Ratio 96.4; Bilirubin, Total 0.5 mg/dL (0.2-1.0); Calcium 7.7 mg/dL (8.5-10.1); Phosphorus 2.7 mg/dL (2.5-4.90); Total Protein 4.9 g/dL (6.4-8.2)
[2022-06-06] MEDS: ASPirin 81 mg TAB PO SCH (10:02)
[2022-06-06] MEDS: ZINC SULFATE 220mg CAP or TAB NG SCH (10:02)
[2022-06-06] MEDS: PANTOPRAZOLE 40 MG/10 ML VIAL INJ IV SCH (10:02)
[2022-06-06] MEDS: CHOLECALCIFEROL (VITD3) 2,000 UNIT CAP/TAB PO SCH (10:03)
[2022-06-06] MEDS: ASCORBIC ACID 500 MG TAB PO SCH ×2 (10:03→22:41)
[2022-06-06] MEDS: CLOPIDOGREL BISULFATE 75 MG TAB PO SCH (10:03)
[2022-06-06] MEDS: QUEtiapine FUMARATE 25 MG TAB PO SCH ×2 (10:03→22:40)
[2022-06-06] MEDS: amLODIPine BESYLATE 5 MG TAB PO SCH (10:03)
[2022-06-06] MEDS: ENOXAPARIN SOD 30 MG/0.3 ML SYRINGE SC SCH (10:04)
[2022-06-06] MEDS: SODIUM CHLOR 0.9% PF (SALINE LOCK) 10ML VIAL/SYR IV SCH ×2 (10:04→22:39)
[2022-06-06] MEDS: MIDAZOLAM DRIP 50 mg/50mL 50 ML IV SCH (13:45)
[2022-06-06] MEDS ORDERED: TPN PER PHARMACY IV NR ×11 (20:00)
[2022-06-06] MEDS: DOPamine 1600MCG/ML D5W 250 ML IV SCH (21:40)
[2022-06-06] MEDS: ATORVASTATIN 20 MG TAB PO SCH (22:40)
[2022-06-07] VITALS (63 sets, daily range): BP systolic 70–199; BP diastolic 35–83
[2022-06-07] MEDS: ALBUTEROL SULF 2.5 MG/0.5ML(0.5%) NEB SOLN NEB SCH ×4 (00:50→18:34)
[2022-06-07] MEDS: IPRATROPIUM BROM 0.5 MG/2.5ML INH SOL NEB SCH ×4 (00:50→18:34)
[2022-06-07] MEDS: NOREPINEPHRINE 8 MG/250ML KIT 250 ML IV SCH (04:45)
[2022-06-07] MEDS ORDERED: PROPOFOL 200 ML IV ONE (05:09)
[2022-06-07] MEDS ORDERED: diphenhdrAMINE HCL 25 MG CAP PO ONE (05:09)
[2022-06-07] MEDS: InsuLIN REG 1unit/0.01ml Soln (100units/ml) SC SCH ×3 (06:00→18:00)
[2022-06-07] MEDS: METOCLOPRAMIDE HCL 5MG/ml INJ 2ml VIAL IV SCH ×3 (06:00→22:18)
[2022-06-07] MEDS: ACCU-CHEK COMFORT CURVE STRIP VI SCH ×3 (06:00→18:24)
[2022-06-07] MEDS: LABETALOL HCL 5 MG/ML 4ML SYRINGE IV PRN (07:47)
[2022-06-07] MEDS: fentaNYL Drip 2500mCg/250mlNS 250 ML IV SCH (07:55)
[2022-06-07 08:31] LABS: Potassium 3.5 mmol/L (3.5-5.1)
[2022-06-07 08:43] LABS: Albumin 2.1 g/dL (3.4-5.0); Bilirubin, Total 0.5 mg/dL (0.2-1.0); Calcium 7.3 mg/dL (8.5-10.1); Phosphorus 3.6 mg/dL (2.5-4.90); Total Protein 4.6 g/dL (6.4-8.2)
[2022-06-07] MEDS: SODIUM CHLOR 0.9% PF (SALINE LOCK) 10ML VIAL/SYR IV SCH ×2 (09:50→22:18)
[2022-06-07] MEDS: PANTOPRAZOLE 40 MG/10 ML VIAL INJ IV SCH (10:00)
[2022-06-07] MEDS: amLODIPine BESYLATE 5 MG TAB PO SCH (10:26)
[2022-06-07] MEDS: ASPirin 81 mg TAB PO SCH (10:26)
[2022-06-07] MEDS: ZINC SULFATE 220mg CAP or TAB NG SCH (10:27)
[2022-06-07] MEDS: ASCORBIC ACID 500 MG TAB PO SCH ×2 (10:27→22:18)
[2022-06-07] MEDS: CHOLECALCIFEROL (VITD3) 2,000 UNIT CAP/TAB PO SCH (10:27)
[2022-06-07] MEDS: QUEtiapine FUMARATE 25 MG TAB PO SCH ×2 (10:27→22:17)
[2022-06-07] MEDS: CLOPIDOGREL BISULFATE 75 MG TAB PO SCH (10:27)
[2022-06-07] MEDS: ENOXAPARIN SOD 30 MG/0.3 ML SYRINGE SC SCH (10:28)
[2022-06-07] MEDS: MIDAZOLAM DRIP 50 mg/50mL 50 ML IV SCH (13:45)
[2022-06-07] MEDS: PROPOFOL 100 ML IV SCH ×2 (15:58→22:27)
[2022-06-07] MEDS: DOPamine 1600MCG/ML D5W 250 ML IV SCH (19:45)
[2022-06-07] MEDS ORDERED: TPN PER PHARMACY IV NR ×9 (20:00)
[2022-06-07] MEDS: ATORVASTATIN 20 MG TAB PO SCH (22:17)
[2022-06-08] VITALS (106 sets, daily range): BP systolic 79–169; BP diastolic 27–78
[2022-06-08] MEDS: IPRATROPIUM BROM 0.5 MG/2.5ML INH SOL NEB SCH ×4 (00:27→20:37)
[2022-06-08] MEDS: ALBUTEROL SULF 2.5 MG/0.5ML(0.5%) NEB SOLN NEB SCH ×4 (00:27→20:36)
[2022-06-08] MEDS: ACCU-CHEK COMFORT CURVE STRIP VI SCH ×4 (01:34→18:03)
[2022-06-08] MEDS: PROPOFOL 100 ML IV SCH ×3 (01:36→20:58)
[2022-06-08] MEDS: fentaNYL Drip 2500mCg/250mlNS 250 ML IV SCH (01:36)
[2022-06-08] MEDS: NOREPINEPHRINE 8 MG/250ML KIT 250 ML IV SCH (04:45)
[2022-06-08 05:00] LABS: Basophils # (auto) 0 10 ^3/uL (0-0.2); Basophils % (auto) 0.6 % (0.0-2.0); Eosinophils # (auto) 0.1 10 ^3/uL (0-0.8); Eosinophils % (auto) 1.4 % (0.0-7.0); Hematocrit 26.6 % (41.0-53.0); Hemoglobin 8.9 g/dL (13.5-17.5); Lymphocytes # (auto) 1.1 10 ^3/uL (0.4-5.4); Lymphocytes % (auto) 16.3 % (10.0-50.0); Mean Corpuscular Hemoglobin 29.3 pg (28.0-32.0); Mean Corpuscular Hgb Conc. 33.5 g/dL (32.0-36.0); Mean Corpuscular Volume 87.5 fL (80.0-100.0); Monocytes # (auto) 0.4 10 ^3/uL (0-1.3); Monocytes % (auto) 6.7 % (0.0-12.0); Red Blood Cells 3.04 10^6/uL (4.5-5.90); Red Cell Distribution Width 15.8 % (11.8-14.3); White Blood Cell 6.6 10^3/uL (4.4-10.8)
[2022-06-08 05:20] LABS: Albumin 1.9 g/dL (3.4-5.0); BUN/Creatinine Ratio 84.6; Calcium 7.3 mg/dL (8.5-10.1); Potassium 3.7 mmol/L (3.5-5.1)
[2022-06-08 05:23] LABS: Bilirubin, Total 0.3 mg/dL (0.2-1.0); Phosphorus 3.1 mg/dL (2.5-4.90); Total Protein 4.5 g/dL (6.4-8.2)
[2022-06-08] MEDS: METOCLOPRAMIDE HCL 5MG/ml INJ 2ml VIAL IV SCH ×3 (05:39→21:57)
[2022-06-08] MEDS: InsuLIN REG 1unit/0.01ml Soln (100units/ml) SC SCH ×4 (06:00→18:00)
[2022-06-08] MEDS: amLODIPine BESYLATE 5 MG TAB PO SCH (10:00)
[2022-06-08] MEDS: PANTOPRAZOLE 40 MG/10 ML VIAL INJ IV SCH (10:13)
[2022-06-08] MEDS: ENOXAPARIN SOD 30 MG/0.3 ML SYRINGE SC SCH (10:13)
[2022-06-08] MEDS: ASPirin 81 mg TAB PO SCH (10:15)
[2022-06-08] MEDS: ASCORBIC ACID 500 MG TAB PO SCH ×2 (10:15→21:57)
[2022-06-08] MEDS: QUEtiapine FUMARATE 25 MG TAB PO SCH ×2 (10:15→21:56)
[2022-06-08] MEDS: CHOLECALCIFEROL (VITD3) 2,000 UNIT CAP/TAB PO SCH (10:15)
[2022-06-08] MEDS: CLOPIDOGREL BISULFATE 75 MG TAB PO SCH (10:15)
[2022-06-08] MEDS: ZINC SULFATE 220mg CAP or TAB NG SCH (10:17)
[2022-06-08] MEDS: SODIUM CHLOR 0.9% PF (SALINE LOCK) 10ML VIAL/SYR IV SCH ×2 (10:17→21:57)
[2022-06-08] MEDS: MIDAZOLAM DRIP 50 mg/50mL 50 ML IV SCH (13:45)
[2022-06-08] MEDS: DOPamine 1600MCG/ML D5W 250 ML IV SCH (17:50)
[2022-06-08] MEDS ORDERED: TPN PER PHARMACY IV NR ×8 (20:00)
[2022-06-08] MEDS: ATORVASTATIN 20 MG TAB PO SCH (21:56)
[2022-06-09] VITALS (101 sets, daily range): BP systolic 99–180; BP diastolic 38–71
[2022-06-09] MEDS: ALBUTEROL SULF 2.5 MG/0.5ML(0.5%) NEB SOLN NEB SCH ×4 (00:29→18:31)
[2022-06-09] MEDS: IPRATROPIUM BROM 0.5 MG/2.5ML INH SOL NEB SCH ×4 (00:29→18:31)
[2022-06-09] MEDS: ACCU-CHEK COMFORT CURVE STRIP VI SCH ×5 (00:33→23:57)
[2022-06-09] MEDS: NOREPINEPHRINE 8 MG/250ML KIT 250 ML IV SCH (04:45)
[2022-06-09 05:00] LABS: Basophils # (auto) 0 10 ^3/uL (0-0.2); Basophils % (auto) 0.3 % (0.0-2.0); Eosinophils # (auto) 0.1 10 ^3/uL (0-0.8); Eosinophils % (auto) 1.4 % (0.0-7.0); Hematocrit 30.4 % (41.0-53.0); Hemoglobin 10.2 g/dL (13.5-17.5); Lymphocytes # (auto) 0.9 10 ^3/uL (0.4-5.4); Lymphocytes % (auto) 13.5 % (10.0-50.0); Mean Corpuscular Hemoglobin 29.5 pg (28.0-32.0); Mean Corpuscular Hgb Conc. 33.4 g/dL (32.0-36.0); Mean Corpuscular Volume 88.3 fL (80.0-100.0); Monocytes # (auto) 0.6 10 ^3/uL (0-1.3); Monocytes % (auto) 8.5 % (0.0-12.0); Neutrophils # (auto) 5.3 10 ^3/uL (1.6-8.6); Neutrophils % (auto) 76.3 % (37.0-80.0); Red Blood Cells 3.44 10^6/uL (4.5-5.90); Red Cell Distribution Width 15.4 % (11.8-14.3); White Blood Cell 6.9 10^3/uL (4.4-10.8)
[2022-06-09 05:18] LABS: Calcium 7.9 mg/dL (8.5-10.1); Potassium 4.1 mmol/L (3.5-5.1)
[2022-06-09 05:24] LABS: Albumin 1.9 g/dL (3.4-5.0); BUN/Creatinine Ratio 61.8; Bilirubin, Total 0.4 mg/dL (0.2-1.0); Magnesium 2.4 mg/dL (1.6-2.6); Phosphorus 3.7 mg/dL (2.5-4.90); Total Protein 5.5 g/dL (6.4-8.2)
[2022-06-09] MEDS: METOCLOPRAMIDE HCL 5MG/ml INJ 2ml VIAL IV SCH ×3 (05:48→21:32)
[2022-06-09] MEDS: InsuLIN REG 1unit/0.01ml Soln (100units/ml) SC SCH ×4 (06:00→17:38)
[2022-06-09] MEDS: PROPOFOL 100 ML IV SCH ×2 (07:16→21:34)
[2022-06-09] MEDS: fentaNYL Drip 2500mCg/250mlNS 250 ML IV SCH (07:26)
[2022-06-09] MEDS: PANTOPRAZOLE 40 MG/10 ML VIAL INJ IV SCH (10:02)
[2022-06-09] MEDS: ASPirin 81 mg TAB PO SCH (10:02)
[2022-06-09] MEDS: CLOPIDOGREL BISULFATE 75 MG TAB PO SCH (10:02)
[2022-06-09] MEDS: ASCORBIC ACID 500 MG TAB PO SCH ×2 (10:02→23:57)
[2022-06-09] MEDS: amLODIPine BESYLATE 5 MG TAB PO SCH (10:03)
[2022-06-09] MEDS: QUEtiapine FUMARATE 25 MG TAB PO SCH ×2 (10:03→23:57)
[2022-06-09] MEDS: ZINC SULFATE 220mg CAP or TAB NG SCH (10:03)
[2022-06-09] MEDS: ENOXAPARIN SOD 30 MG/0.3 ML SYRINGE SC SCH (10:04)
[2022-06-09] MEDS: SODIUM CHLOR 0.9% PF (SALINE LOCK) 10ML VIAL/SYR IV SCH ×2 (10:04→21:32)
[2022-06-09] MEDS: CHOLECALCIFEROL (VITD3) 2,000 UNIT CAP/TAB PO SCH (10:26)
[2022-06-09] MEDS: LABETALOL HCL 5 MG/ML 4ML SYRINGE IV PRN (13:41)
[2022-06-09] MEDS: MIDAZOLAM DRIP 50 mg/50mL 50 ML IV SCH (13:45)
[2022-06-09] MEDS: ACETAMINOPHEN 650 mg PER 20.3 mL UD GT PRN (13:45)
[2022-06-09] MEDS: DOPamine 1600MCG/ML D5W 250 ML IV SCH (15:55)
[2022-06-09] MEDS ORDERED: TPN PER PHARMACY IV NR ×8 (20:00)
[2022-06-09] MEDS: ATORVASTATIN 20 MG TAB PO SCH (21:33)
[2022-06-10] VITALS (98 sets, daily range): BP systolic 94–199; BP diastolic 29–76
[2022-06-10] MEDS: IPRATROPIUM BROM 0.5 MG/2.5ML INH SOL NEB SCH ×4 (00:27→19:00)
[2022-06-10] MEDS: ALBUTEROL SULF 2.5 MG/0.5ML(0.5%) NEB SOLN NEB SCH ×4 (00:27→18:59)
[2022-06-10] MEDS: fentaNYL Drip 2500mCg/250mlNS 250 ML IV SCH ×2 (00:28→17:30)
[2022-06-10] MEDS: LABETALOL HCL 5 MG/ML 4ML SYRINGE IV PRN (00:30)
[2022-06-10 03:16] LABS: Basophils # (auto) 0.1 10 ^3/uL (0-0.2); Basophils % (auto) 0.7 % (0.0-2.0); Eosinophils # (auto) 0.1 10 ^3/uL (0-0.8); Eosinophils % (auto) 0.5 % (0.0-7.0); Hematocrit 29.2 % (41.0-53.0); Hemoglobin 9.7 g/dL (13.5-17.5); Mean Corpuscular Hemoglobin 29.2 pg (28.0-32.0); Mean Corpuscular Hgb Conc. 33.1 g/dL (32.0-36.0); Mean Corpuscular Volume 88.3 fL (80.0-100.0); Monocytes # (auto) 0.4 10 ^3/uL (0-1.3); Neutrophils # (auto) 9.3 10 ^3/uL (1.6-8.6); Neutrophils % (auto) 85.8 % (37.0-80.0); Red Cell Distribution Width 15.7 % (11.8-14.3); White Blood Cell 10.9 10^3/uL (4.4-10.8)
[2022-06-10 03:41] LABS: Magnesium 2.1 mg/dL (1.6-2.6); Phosphorus 3.1 mg/dL (2.5-4.90)
[2022-06-10 03:43] LABS: BUN/Creatinine Ratio 63.3; Potassium 4.6 mmol/L (3.5-5.1)
[2022-06-10 03:46] LABS: Bilirubin, Total 0.4 mg/dL (0.2-1.0); Total Protein 5.8 g/dL (6.4-8.2)
[2022-06-10] MEDS: NOREPINEPHRINE 8 MG/250ML KIT 250 ML IV SCH (04:45)
[2022-06-10] MEDS: ACCU-CHEK COMFORT CURVE STRIP VI SCH ×4 (05:35→17:20)
[2022-06-10] MEDS: InsuLIN REG 1unit/0.01ml Soln (100units/ml) SC SCH ×5 (05:35→17:17)
[2022-06-10] MEDS: METOCLOPRAMIDE HCL 5MG/ml INJ 2ml VIAL IV SCH ×3 (05:35→21:23)
[2022-06-10] MEDS: ACETAMINOPHEN 650 mg PER 20.3 mL UD GT PRN (06:00)
[2022-06-10] MEDS: PANTOPRAZOLE 40 MG/10 ML VIAL INJ IV SCH (09:25)
[2022-06-10] MEDS: amLODIPine BESYLATE 5 MG TAB PO SCH (09:26)
[2022-06-10] MEDS: ASPirin 81 mg TAB PO SCH (09:26)
[2022-06-10] MEDS: QUEtiapine FUMARATE 25 MG TAB PO SCH ×2 (09:27→21:23)
[2022-06-10] MEDS: CHOLECALCIFEROL (VITD3) 2,000 UNIT CAP/TAB PO SCH (09:27)
[2022-06-10] MEDS: ENOXAPARIN SOD 30 MG/0.3 ML SYRINGE SC SCH (09:27)
[2022-06-10] MEDS: ZINC SULFATE 220mg CAP or TAB NG SCH (09:27)
[2022-06-10] MEDS: ASCORBIC ACID 500 MG TAB PO SCH ×2 (09:27→10:17)
[2022-06-10] MEDS: CLOPIDOGREL BISULFATE 75 MG TAB PO SCH (09:28)
[2022-06-10] MEDS: SODIUM CHLOR 0.9% PF (SALINE LOCK) 10ML VIAL/SYR IV SCH ×2 (10:16→21:23)
[2022-06-10] MEDS: PROPOFOL 100 ML IV SCH (10:19)
[2022-06-10] MEDS: MIDAZOLAM DRIP 50 mg/50mL 50 ML IV SCH (13:45)
[2022-06-10] MEDS: DOPamine 1600MCG/ML D5W 250 ML IV SCH (14:00)
[2022-06-10] MEDS ORDERED: TPN PER PHARMACY IV NR ×9 (20:00)
[2022-06-10] MEDS: ATORVASTATIN 20 MG TAB PO SCH (21:23)
[2022-06-11] VITALS (98 sets, daily range): BP systolic 92–168; BP diastolic 27–68
[2022-06-11] MEDS: PROPOFOL 100 ML IV SCH
[2022-06-11] MEDS: ALBUTEROL SULF 2.5 MG/0.5ML(0.5%) NEB SOLN NEB SCH ×4 (00:32→17:43)
[2022-06-11] MEDS: IPRATROPIUM BROM 0.5 MG/2.5ML INH SOL NEB SCH ×4 (00:32→17:43)
[2022-06-11] MEDS: NOREPINEPHRINE 8 MG/250ML KIT 250 ML IV SCH (01:57)
[2022-06-11] MEDS: ACETAMINOPHEN 650 mg PER 20.3 mL UD GT PRN ×2 (02:12→15:58)
[2022-06-11 05:36] LABS: Basophils # (auto) 0.1 10 ^3/uL (0-0.2); Basophils % (auto) 0.9 % (0.0-2.0); Eosinophils # (auto) 0.1 10 ^3/uL (0-0.8); Eosinophils % (auto) 0.8 % (0.0-7.0); Hematocrit 24.9 % (41.0-53.0); Hemoglobin 8.6 g/dL (13.5-17.5); Lymphocytes # (auto) 1.1 10 ^3/uL (0.4-5.4); Lymphocytes % (auto) 16.5 % (10.0-50.0); Mean Corpuscular Hemoglobin 30.4 pg (28.0-32.0); Mean Corpuscular Hgb Conc. 34.6 g/dL (32.0-36.0); Monocytes # (auto) 0.4 10 ^3/uL (0-1.3); Monocytes % (auto) 5.3 % (0.0-12.0); Neutrophils # (auto) 5.1 10 ^3/uL (1.6-8.6); Neutrophils % (auto) 76.5 % (37.0-80.0); Red Blood Cells 2.83 10^6/uL (4.5-5.90); Red Cell Distribution Width 15.8 % (11.8-14.3); White Blood Cell 6.7 10^3/uL (4.4-10.8)
[2022-06-11 05:52] LABS: Albumin 1.7 g/dL (3.4-5.0); BUN/Creatinine Ratio 70.4; Calcium 7.7 mg/dL (8.5-10.1); Magnesium 2.3 mg/dL (1.6-2.6); Potassium 3.8 mmol/L (3.5-5.1)
[2022-06-11] MEDS: METOCLOPRAMIDE HCL 5MG/ml INJ 2ml VIAL IV SCH ×3 (06:00→22:30)
[2022-06-11] MEDS: InsuLIN REG 1unit/0.01ml Soln (100units/ml) SC SCH ×4 (06:00→17:43)
[2022-06-11] MEDS: ACCU-CHEK COMFORT CURVE STRIP VI SCH ×3 (06:00→17:43)
[2022-06-11 06:21] LABS: Pre Albumin 20.6 mg/dL (20.0-40.0)
[2022-06-11 06:29] LABS: Bilirubin, Total 0.4 mg/dL (0.2-1.0); Phosphorus 3.4 mg/dL (2.5-4.90); Total Protein 5.3 g/dL (6.4-8.2)
[2022-06-11] MEDS: ENOXAPARIN SOD 30 MG/0.3 ML SYRINGE SC SCH (09:26)
[2022-06-11] MEDS: PANTOPRAZOLE 40 MG/10 ML VIAL INJ IV SCH (09:26)
[2022-06-11] MEDS: CLOPIDOGREL BISULFATE 75 MG TAB PO SCH (09:26)
[2022-06-11] MEDS: ASCORBIC ACID 500 MG TAB PO SCH ×2 (09:26→22:29)
[2022-06-11] MEDS: ASPirin 81 mg TAB PO SCH (09:26)
[2022-06-11] MEDS: CHOLECALCIFEROL (VITD3) 2,000 UNIT CAP/TAB PO SCH (09:27)
[2022-06-11] MEDS: QUEtiapine FUMARATE 25 MG TAB PO SCH ×2 (09:27→22:29)
[2022-06-11] MEDS: amLODIPine BESYLATE 5 MG TAB PO SCH (09:27)
[2022-06-11] MEDS: ZINC SULFATE 220mg CAP or TAB NG SCH (09:27)
[2022-06-11] MEDS: SODIUM CHLOR 0.9% PF (SALINE LOCK) 10ML VIAL/SYR IV SCH ×2 (09:28→22:00)
[2022-06-11] MEDS: DOPamine 1600MCG/ML D5W 250 ML IV SCH (12:05)
[2022-06-11] MEDS: MIDAZOLAM DRIP 50 mg/50mL 50 ML IV SCH (13:45)
[2022-06-11] MEDS ORDERED: TPN PER PHARMACY IV NR ×10 (20:00)
[2022-06-11] MEDS: ATORVASTATIN 20 MG TAB PO SCH (22:30)
[2022-06-12] VITALS (92 sets, daily range): BP systolic 85–153; BP diastolic 32–65
[2022-06-12] MEDS: ALBUTEROL SULF 2.5 MG/0.5ML(0.5%) NEB SOLN NEB SCH ×4 (00:20→18:32)
[2022-06-12] MEDS: IPRATROPIUM BROM 0.5 MG/2.5ML INH SOL NEB SCH ×4 (00:20→18:32)
[2022-06-12] MEDS: PROPOFOL 100 ML IV SCH ×2 (02:14→23:18)
[2022-06-12] MEDS: fentaNYL Drip 2500mCg/250mlNS 250 ML IV SCH (03:20)
[2022-06-12] MEDS: NOREPINEPHRINE 8 MG/250ML KIT 250 ML IV SCH (04:45)
[2022-06-12] MEDS: InsuLIN REG 1unit/0.01ml Soln (100units/ml) SC SCH ×4 (06:00→17:39)
[2022-06-12] MEDS: METOCLOPRAMIDE HCL 5MG/ml INJ 2ml VIAL IV SCH ×3 (06:00→21:43)
[2022-06-12] MEDS: ACCU-CHEK COMFORT CURVE STRIP VI SCH ×4 (06:00→17:39)
[2022-06-12 07:51] LABS: Eosinophils # (auto) 0.1 10 ^3/uL (0-0.8); Hemoglobin 8.2 g/dL (13.5-17.5); Nucleated Red Blood Cells % 0.3 %
[2022-06-12 07:54] LABS: Basophils # (auto) 0.1 10 ^3/uL (0-0.2); Basophils % (auto) 0.8 % (0.0-2.0); Eosinophils % (auto) 1.2 % (0.0-7.0); Hematocrit 24.1 % (41.0-53.0); Lymphocytes # (auto) 0.9 10 ^3/uL (0.4-5.4); Mean Corpuscular Hemoglobin 29.8 pg (28.0-32.0); Mean Corpuscular Volume 87.4 fL (80.0-100.0); Monocytes # (auto) 0.3 10 ^3/uL (0-1.3); Monocytes % (auto) 4.6 % (0.0-12.0); Neutrophils # (auto) 6.2 10 ^3/uL (1.6-8.6); Neutrophils % (auto) 81.4 % (37.0-80.0); Red Blood Cells 2.76 10^6/uL (4.5-5.90); Red Cell Distribution Width 15.8 % (11.8-14.3); White Blood Cell 7.6 10^3/uL (4.4-10.8)
[2022-06-12 07:55] LABS: Albumin 1.6 g/dL (3.4-5.0); Calcium 7.6 mg/dL (8.5-10.1); Magnesium 2.1 mg/dL (1.6-2.6); Potassium 3.7 mmol/L (3.5-5.1)
[2022-06-12 07:58] LABS: BUN/Creatinine Ratio 58.6; Bilirubin, Total 0.5 mg/dL (0.2-1.0); Phosphorus 3.5 mg/dL (2.5-4.90); Total Protein 5.4 g/dL (6.4-8.2)
[2022-06-12] MEDS: DOPamine 1600MCG/ML D5W 250 ML IV SCH (10:10)
[2022-06-12] MEDS: SODIUM CHLOR 0.9% PF (SALINE LOCK) 10ML VIAL/SYR IV SCH ×2 (10:11→21:44)
[2022-06-12] MEDS: PANTOPRAZOLE 40 MG/10 ML VIAL INJ IV SCH (10:11)
[2022-06-12] MEDS: CLOPIDOGREL BISULFATE 75 MG TAB PO SCH (10:12)
[2022-06-12] MEDS: ZINC SULFATE 220mg CAP or TAB NG SCH (10:12)
[2022-06-12] MEDS: amLODIPine BESYLATE 5 MG TAB PO SCH (10:12)
[2022-06-12] MEDS: ASPirin 81 mg TAB PO SCH (10:12)
[2022-06-12] MEDS: QUEtiapine FUMARATE 25 MG TAB PO SCH ×2 (10:13→21:44)
[2022-06-12] MEDS: CHOLECALCIFEROL (VITD3) 2,000 UNIT CAP/TAB PO SCH (10:13)
[2022-06-12] MEDS: ASCORBIC ACID 500 MG TAB PO SCH ×2 (10:13→21:44)
[2022-06-12] MEDS ORDERED: IOHEXOL 350 MG/ML 100ML IJ ONE (11:35)
[2022-06-12] MEDS: MIDAZOLAM DRIP 50 mg/50mL 50 ML IV SCH (13:45)
[2022-06-12] MEDS ORDERED: TPN PER PHARMACY IV NR ×10 (20:00)
[2022-06-12] MEDS: ATORVASTATIN 20 MG TAB PO SCH (21:43)
[2022-06-13] VITALS (106 sets, daily range): BP systolic 72–152; BP diastolic 30–77
[2022-06-13] MEDS: ALBUTEROL SULF 2.5 MG/0.5ML(0.5%) NEB SOLN NEB SCH ×4 (00:34→18:27)
[2022-06-13] MEDS: IPRATROPIUM BROM 0.5 MG/2.5ML INH SOL NEB SCH ×4 (00:34→18:27)
[2022-06-13] MEDS: NOREPINEPHRINE 8 MG/250ML KIT 250 ML IV SCH ×2 (04:45→22:26)
[2022-06-13] MEDS: PROPOFOL 100 ML IV SCH ×2 (05:55→23:00)
[2022-06-13] MEDS: InsuLIN REG 1unit/0.01ml Soln (100units/ml) SC SCH ×4 (06:00→17:26)
[2022-06-13] MEDS: ACCU-CHEK COMFORT CURVE STRIP VI SCH ×4 (06:00→17:27)
[2022-06-13] MEDS: fentaNYL Drip 2500mCg/250mlNS 250 ML IV SCH (06:12)
[2022-06-13 06:58] LABS: Albumin 1.6 g/dL (3.4-5.0); Calcium 7.8 mg/dL (8.5-10.1); Magnesium 2.2 mg/dL (1.6-2.6); Potassium 3.7 mmol/L (3.5-5.1)
[2022-06-13 07:01] LABS: Bilirubin, Total 0.5 mg/dL (0.2-1.0); Total Protein 5.5 g/dL (6.4-8.2)
[2022-06-13 07:31] LABS: Basophils # (auto) 0 10 ^3/uL (0-0.2); Eosinophils # (auto) 0.1 10 ^3/uL (0-0.8); Lymphocytes # (auto) 0.8 10 ^3/uL (0.4-5.4); Mean Corpuscular Hgb Conc. 34.3 g/dL (32.0-36.0); Monocytes # (auto) 0.3 10 ^3/uL (0-1.3)
[2022-06-13 07:33] LABS: Basophils % (auto) 0.8 % (0.0-2.0); Eosinophils % (auto) 1.7 % (0.0-7.0); Hematocrit 24.2 % (41.0-53.0); Hemoglobin 8.3 g/dL (13.5-17.5); Lymphocytes % (auto) 13.1 % (10.0-50.0); Mean Corpuscular Hemoglobin 30.1 pg (28.0-32.0); Mean Corpuscular Volume 87.7 fL (80.0-100.0); Monocytes % (auto) 5.5 % (0.0-12.0); Neutrophils # (auto) 4.7 10 ^3/uL (1.6-8.6); Neutrophils % (auto) 78.9 % (37.0-80.0); Nucleated Red Blood Cells % 0.5 %; Red Blood Cells 2.76 10^6/uL (4.5-5.90); Red Cell Distribution Width 15.5 % (11.8-14.3)
[2022-06-13] MEDS: METOCLOPRAMIDE HCL 5MG/ml INJ 2ml VIAL IV SCH ×3 (07:53→21:01)
[2022-06-13] MEDS: DOPamine 1600MCG/ML D5W 250 ML IV SCH (08:15)
[2022-06-13] MEDS: QUEtiapine FUMARATE 25 MG TAB PO SCH ×2 (10:00→21:02)
[2022-06-13] MEDS: CLOPIDOGREL BISULFATE 75 MG TAB PO SCH (10:00)
[2022-06-13] MEDS: CHOLECALCIFEROL (VITD3) 2,000 UNIT CAP/TAB PO SCH (10:00)
[2022-06-13] MEDS: ASCORBIC ACID 500 MG TAB PO SCH ×2 (10:00→21:02)
[2022-06-13] MEDS: ZINC SULFATE 220mg CAP or TAB NG SCH (10:00)
[2022-06-13] MEDS: amLODIPine BESYLATE 5 MG TAB PO SCH (10:00)
[2022-06-13] MEDS: ASPirin 81 mg TAB PO SCH (10:00)
[2022-06-13] MEDS: PANTOPRAZOLE 40 MG/10 ML VIAL INJ IV SCH (10:29)
[2022-06-13] MEDS: SODIUM CHLOR 0.9% PF (SALINE LOCK) 10ML VIAL/SYR IV SCH ×2 (10:30→21:01)
[2022-06-13] MEDS: MIDAZOLAM DRIP 50 mg/50mL 50 ML IV SCH (13:45)
[2022-06-13] MEDS ORDERED: ETOMIDATE (2MG/ML) 20ML VIAL IV ONE ×2 (15:29→15:37)
[2022-06-13] MEDS ORDERED: SUCCINYLCHOLINE CHLORIDE 20 MG/ML 10ML VIAL IV ONE ×2 (15:30→15:37)
[2022-06-13] MEDS ORDERED: TPN PER PHARMACY IV NR ×9 (20:00)
[2022-06-13] MEDS: ATORVASTATIN 20 MG TAB PO SCH (21:01)
[2022-06-14] VITALS (89 sets, daily range): BP systolic 90–146; BP diastolic 27–78
[2022-06-14] MEDS: ACCU-CHEK COMFORT CURVE STRIP VI SCH ×4 (00:26→19:00)
[2022-06-14] MEDS: IPRATROPIUM BROM 0.5 MG/2.5ML INH SOL NEB SCH ×4 (00:56→18:00)
[2022-06-14] MEDS: ALBUTEROL SULF 2.5 MG/0.5ML(0.5%) NEB SOLN NEB SCH ×4 (00:56→18:00)
[2022-06-14] MEDS: METOCLOPRAMIDE HCL 5MG/ml INJ 2ml VIAL IV SCH ×3 (06:03→22:00)
[2022-06-14 06:04] LABS: Basophils # (auto) 0 10 ^3/uL (0-0.2); Eosinophils # (auto) 0.1 10 ^3/uL (0-0.8); Lymphocytes # (auto) 0.9 10 ^3/uL (0.4-5.4); Lymphocytes % (auto) 16.8 % (10.0-50.0); Monocytes # (auto) 0.3 10 ^3/uL (0-1.3); Neutrophils # (auto) 4.2 10 ^3/uL (1.6-8.6); Red Cell Distribution Width 15.5 % (11.8-14.3); White Blood Cell 5.6 10^3/uL (4.4-10.8)
[2022-06-14 06:08] LABS: Basophils % (auto) 0.5 % (0.0-2.0); Eosinophils % (auto) 1.7 % (0.0-7.0); Hematocrit 21.4 % (41.0-53.0); Hemoglobin 7.4 g/dL (13.5-17.5); Mean Corpuscular Hemoglobin 30.4 pg (28.0-32.0); Mean Corpuscular Hgb Conc. 34.7 g/dL (32.0-36.0); Mean Corpuscular Volume 87.6 fL (80.0-100.0); Monocytes % (auto) 5.4 % (0.0-12.0); Neutrophils % (auto) 75.6 % (37.0-80.0); Nucleated Red Blood Cells % 0.1 %; Red Blood Cells 2.44 10^6/uL (4.5-5.90)
[2022-06-14 06:11] LABS: Potassium 3.2 mmol/L (3.5-5.1)
[2022-06-14] MEDS: DOPamine 1600MCG/ML D5W 250 ML IV SCH (06:20)
[2022-06-14 06:26] LABS: Albumin 1.6 g/dL (3.4-5.0); BUN/Creatinine Ratio 40.5; Bilirubin, Total 0.4 mg/dL (0.2-1.0); Calcium 8.2 mg/dL (8.5-10.1); Magnesium 1.9 mg/dL (1.6-2.6); Phosphorus 3.3 mg/dL (2.5-4.90); Total Protein 5.6 g/dL (6.4-8.2)
[2022-06-14] MEDS: InsuLIN REG 1unit/0.01ml Soln (100units/ml) SC SCH ×4 (06:36→19:00)
[2022-06-14] MEDS: PROPOFOL 100 ML IV SCH ×2 (08:59→16:10)
[2022-06-14] MEDS: ASPirin 81 mg TAB PO SCH (10:00)
[2022-06-14] MEDS: amLODIPine BESYLATE 5 MG TAB PO SCH (10:00)
[2022-06-14] MEDS: CLOPIDOGREL BISULFATE 75 MG TAB PO SCH (10:13)
[2022-06-14] MEDS: ZINC SULFATE 220mg CAP or TAB NG SCH (10:13)
[2022-06-14] MEDS: CHOLECALCIFEROL (VITD3) 2,000 UNIT CAP/TAB PO SCH (10:13)
[2022-06-14] MEDS: QUEtiapine FUMARATE 25 MG TAB PO SCH ×2 (10:13→22:00)
[2022-06-14] MEDS: ASCORBIC ACID 500 MG TAB PO SCH ×2 (10:13→22:00)
[2022-06-14] MEDS: POTASSIUM CHL 20MEQ/100ML 100 ML IV SCH ×2 (10:14→13:26)
[2022-06-14] MEDS: PANTOPRAZOLE 40 MG/10 ML VIAL INJ IV SCH (10:14)
[2022-06-14] MEDS: fentaNYL Drip 2500mCg/250mlNS 250 ML IV SCH (10:18)
[2022-06-14] MEDS: SODIUM CHLOR 0.9% PF (SALINE LOCK) 10ML VIAL/SYR IV SCH ×2 (12:27→22:00)
[2022-06-14] MEDS: MIDAZOLAM DRIP 50 mg/50mL 50 ML IV SCH (13:45)
[2022-06-14] MEDS ORDERED: TPN PER PHARMACY IV NR ×9 (20:00)
[2022-06-14] MEDS ORDERED: MORPHINE SULFATE INJ 2 MG/ml SYRG ONE (20:42)
[2022-06-14] MEDS ORDERED: LORazepam 2MG/ML-1ML VIAL IV PRN (20:45)
[2022-06-14] MEDS ORDERED: MIDAZOLAM HCL 2MG/2ML 2ml VIAL (1mg/ml) ONE (21:10)
[2022-06-14] MEDS ORDERED: MIDAZOLAM HCL 2MG/2ML 2ml VIAL (1mg/ml) IV PRN (21:15)
[2022-06-14] MEDS: MORPHINE SULFATE INJ 2 MG/ml SYRG IV PRN (21:39)
[2022-06-14] MEDS: ATORVASTATIN 20 MG TAB PO SCH (22:00)
[2022-06-15] VITALS (62 sets, daily range): BP systolic 100–136; BP diastolic 38–60
[2022-06-15] MEDS: ALBUTEROL SULF 2.5 MG/0.5ML(0.5%) NEB SOLN NEB SCH
[2022-06-15] MEDS: IPRATROPIUM BROM 0.5 MG/2.5ML INH SOL NEB SCH
[2022-06-15] MEDS: MORPHINE SULFATE INJ 2 MG/ml SYRG IV PRN ×4 (00:32→06:31)
[2022-06-15] MEDS ORDERED: ACETAMINOPHEN IV 1000 MG/100ML (10MG/ML) IV PRN (00:45)
[2022-06-15] MEDS: DOPamine 1600MCG/ML D5W 250 ML IV SCH (04:25)
[2022-06-15] MEDS: NOREPINEPHRINE 8 MG/250ML KIT 250 ML IV SCH (04:45)
[2022-06-15] MEDS: InsuLIN REG 1unit/0.01ml Soln (100units/ml) SC SCH ×2 (06:00)
[2022-06-15] MEDS: ACCU-CHEK COMFORT CURVE STRIP VI SCH ×2 (06:00)
[2022-06-15] MEDS: METOCLOPRAMIDE HCL 5MG/ml INJ 2ml VIAL IV SCH ×4 (06:00→22:46)
[2022-06-15] MEDS: fentaNYL Drip 2500mCg/250mlNS 250 ML IV SCH (07:45)
[2022-06-15] MEDS: ZINC SULFATE 220mg CAP or TAB NG SCH (08:53)
[2022-06-15] MEDS: ASPirin 81 mg TAB PO SCH (08:53)
[2022-06-15] MEDS: amLODIPine BESYLATE 5 MG TAB PO SCH (08:53)
[2022-06-15] MEDS: SODIUM CHLOR 0.9% PF (SALINE LOCK) 10ML VIAL/SYR IV SCH ×2 (08:53→22:46)
[2022-06-15] MEDS: PANTOPRAZOLE 40 MG/10 ML VIAL INJ IV SCH (08:53)
[2022-06-15] MEDS: ASCORBIC ACID 500 MG TAB PO SCH ×3 (08:54→22:47)
[2022-06-15] MEDS: QUEtiapine FUMARATE 25 MG TAB PO SCH ×3 (08:54→22:47)
[2022-06-15] MEDS: CLOPIDOGREL BISULFATE 75 MG TAB PO SCH (08:54)
[2022-06-15] MEDS: CHOLECALCIFEROL (VITD3) 2,000 UNIT CAP/TAB PO SCH (08:55)
[2022-06-15] MEDS: ATORVASTATIN 20 MG TAB PO SCH ×2 (21:40→22:46)
[2022-06-16] MEDS: DOPamine 1600MCG/ML D5W 250 ML IV SCH (02:30)
[2022-06-16 05:00] VITALS: BP 116/50
[2022-06-16] MEDS: METOCLOPRAMIDE HCL 5MG/ml INJ 2ml VIAL IV SCH ×3 (06:20→23:07)
[2022-06-16 09:00] VITALS: BP 119/52
[2022-06-16] MEDS: amLODIPine BESYLATE 5 MG TAB PO SCH (10:00)
[2022-06-16] MEDS: ZINC SULFATE 220mg CAP or TAB NG SCH (10:00)
[2022-06-16] MEDS: CLOPIDOGREL BISULFATE 75 MG TAB PO SCH (10:00)
[2022-06-16] MEDS: ASPirin 81 mg TAB PO SCH (10:00)
[2022-06-16] MEDS: QUEtiapine FUMARATE 25 MG TAB PO SCH ×2 (10:00→23:07)
[2022-06-16] MEDS: CHOLECALCIFEROL (VITD3) 2,000 UNIT CAP/TAB PO SCH (10:00)
[2022-06-16] MEDS: PANTOPRAZOLE 40 MG/10 ML VIAL INJ IV SCH (12:15)
[2022-06-16] MEDS: SODIUM CHLOR 0.9% PF (SALINE LOCK) 10ML VIAL/SYR IV SCH ×2 (12:15→22:00)
[2022-06-16 13:00] VITALS: BP 127/52
[2022-06-16 17:00] VITALS: BP 126/51
[2022-06-16 22:00] VITALS: BP 134/54
[2022-06-16] MEDS: ATORVASTATIN 20 MG TAB PO SCH (23:07)
[2022-06-16] MEDS ORDERED: levETIRAcetam 500 MG/5ML INJ IV ONE (23:23)
[2022-06-17] MEDS: DOPamine 1600MCG/ML D5W 250 ML IV SCH ×2 (00:35→22:40)
[2022-06-17 04:58] VITALS: BP 132/54
[2022-06-17] MEDS: METOCLOPRAMIDE HCL 5MG/ml INJ 2ml VIAL IV SCH ×3 (06:22→22:23)
[2022-06-17 09:00] VITALS: BP 133/64
[2022-06-17] MEDS: SODIUM CHLOR 0.9% PF (SALINE LOCK) 10ML VIAL/SYR IV SCH ×2 (09:42→22:24)
[2022-06-17] MEDS: CLOPIDOGREL BISULFATE 75 MG TAB PO SCH (09:42)
[2022-06-17] MEDS: ASPirin 81 mg TAB PO SCH (09:42)
[2022-06-17] MEDS: PANTOPRAZOLE 40 MG/10 ML VIAL INJ IV SCH (09:42)
[2022-06-17] MEDS: amLODIPine BESYLATE 5 MG TAB PO SCH (09:43)
[2022-06-17] MEDS: QUEtiapine FUMARATE 25 MG TAB PO SCH ×2 (09:43→22:24)
[2022-06-17 17:00] VITALS: BP 125/56
[2022-06-17 21:00] VITALS: BP 134/53
[2022-06-17] MEDS: ATORVASTATIN 20 MG TAB PO SCH (22:24)
[2022-06-18] MEDS: METOCLOPRAMIDE HCL 5MG/ml INJ 2ml VIAL IV SCH ×3 (06:04→21:51)
[2022-06-18] MEDS: ASPirin 81 mg TAB PO SCH (08:55)
[2022-06-18] MEDS: QUEtiapine FUMARATE 25 MG TAB PO SCH ×2 (08:55→21:51)
[2022-06-18] MEDS: amLODIPine BESYLATE 5 MG TAB PO SCH (08:55)
[2022-06-18] MEDS: CLOPIDOGREL BISULFATE 75 MG TAB PO SCH (08:55)
[2022-06-18] MEDS: SODIUM CHLOR 0.9% PF (SALINE LOCK) 10ML VIAL/SYR IV SCH ×2 (08:55→21:51)
[2022-06-18] MEDS: PANTOPRAZOLE 40 MG/10 ML VIAL INJ IV SCH (08:55)
[2022-06-18 08:58] VITALS: BP 133/44
[2022-06-18 16:27] VITALS: BP 105/44
[2022-06-18 17:09] VITALS: BP 92/38
[2022-06-18 22:00] VITALS: BP 101/44
[2022-06-19 05:00] VITALS: BP 126/47
[2022-06-19] MEDS: METOCLOPRAMIDE HCL 5MG/ml INJ 2ml VIAL IV SCH ×3 (05:55→22:24)
[2022-06-19] MEDS: DOPamine 1600MCG/ML D5W 250 ML IV SCH ×2 (07:56→18:07)
[2022-06-19] MEDS: SODIUM CHLOR 0.9% PF (SALINE LOCK) 10ML VIAL/SYR IV SCH ×2 (10:47→22:25)
[2022-06-19] MEDS: amLODIPine BESYLATE 5 MG TAB PO SCH (10:47)
[2022-06-19] MEDS: PANTOPRAZOLE 40 MG/10 ML VIAL INJ IV SCH (10:47)
[2022-06-19] MEDS: QUEtiapine FUMARATE 25 MG TAB PO SCH ×2 (10:47→22:25)
[2022-06-19 22:00] VITALS: BP 123/55
[2022-06-20 05:00] VITALS: BP 124/76
[2022-06-20] MEDS: METOCLOPRAMIDE HCL 5MG/ml INJ 2ml VIAL IV SCH ×2 (06:00→14:54)
[2022-06-20 09:00] VITALS: BP 105/62
[2022-06-20] MEDS: QUEtiapine FUMARATE 25 MG TAB PO SCH (10:25)
[2022-06-20] MEDS: SODIUM CHLOR 0.9% PF (SALINE LOCK) 10ML VIAL/SYR IV SCH (10:25)
[2022-06-20] MEDS: amLODIPine BESYLATE 5 MG TAB PO SCH (10:42)
[2022-06-20 13:00] VITALS: BP 126/67
[2022-06-20] MEDS: DOPamine 1600MCG/ML D5W 250 ML IV SCH (16:55)
[2022-06-20 18:17] VITALS: BP 90/57
== END 2022-06-20 18:50 | disposition hospice, home (50) | DRG 981 ==
LOC: EDBD 01:06 → ER 01:06 → TELE 04:59 → ICU WEST 07:24 → TELE-CENTR 05-25 10:14 → ICU WEST 05-25 10:39 → TELE-CENTR 05-25 11:35 → DOU IN ICU 05-26 22:54 → ICU CENTRL 05-28 08:51 → EAST 06-15 17:45
PROVIDERS: ADMIT Hospitalist; ATTEND Internal Medicine
PROC: 5A1955Z Respiratory Ventilation, Greater than 96 Consecutive Hours (ICD-10-PCS; principal; 2022-05-16)
PROC: 0BH17EZ Insertion of Endotracheal Airway into Trachea, Via Natural or Artificial Opening (ICD-10-PCS; 2022-05-16)
PROC: 027034Z Dilation of Coronary Artery, One Artery with Drug-eluting Intraluminal Device, Percutaneous Approach (ICD-10-PCS; 2022-05-18)
PROC: B2011ZZ Plain Radiography of Multiple Coronary Arteries using Low Osmolar Contrast (ICD-10-PCS; 2022-05-18)
PROC: B41F1ZZ Fluoroscopy of Right Lower Extremity Arteries using Low Osmolar Contrast (ICD-10-PCS; 2022-05-18)
PROC: 03HY32Z Insertion of Monitoring Device into Upper Artery, Percutaneous Approach (ICD-10-PCS; 2022-05-18)
PROC: 06HM33Z Insertion of Infusion Device into Right Femoral Vein, Percutaneous Approach (ICD-10-PCS; 2022-05-18)
PROC: B240ZZ3 Ultrasonography of Single Coronary Artery, Intravascular (ICD-10-PCS; 2022-05-18)
PROC: 02HV33Z Insertion of Infusion Device into Superior Vena Cava, Percutaneous Approach (ICD-10-PCS; 2022-05-27)
PROC: B548ZZA Ultrasonography of Superior Vena Cava, Guidance (ICD-10-PCS; 2022-05-27)
PROC: 5A1955Z Respiratory Ventilation, Greater than 96 Consecutive Hours (ICD-10-PCS; 2022-05-27)
PROC: 0BH17EZ Insertion of Endotracheal Airway into Trachea, Via Natural or Artificial Opening (ICD-10-PCS; 2022-05-27)
PROC: 5A0935A Assistance with Respiratory Ventilation, Less than 24 Consecutive Hours, High Flow/Velocity Cannula (ICD-10-PCS; 2022-05-27)
PROC: 0B978ZZ Drainage of Left Main Bronchus, Via Natural or Artificial Opening Endoscopic (ICD-10-PCS; 2022-06-01)
DX: U07.1 COVID-19 (principal); A41.9 Sepsis, unspecified organism; J96.01 Acute respiratory failure with hypoxia; J12.82 Pneumonia due to coronavirus disease 2019; I40.0 Infective myocarditis; K72.00 Acute and subacute hepatic failure without coma; R65.21 Severe sepsis with septic shock; I21.A1 Myocardial infarction type 2; G40.411 Other generalized epilepsy and epileptic syndromes, intractable, with status epilepticus; G93.1 Anoxic brain damage, not elsewhere classified; J98.11 Atelectasis; I50.20 Unspecified systolic (congestive) heart failure; J44.0 Chronic obstructive pulmonary disease with (acute) lower respiratory infection; I42.0 Dilated cardiomyopathy; Z99.11 Dependence on respirator [ventilator] status; I48.91 Unspecified atrial fibrillation; I73.9 Peripheral vascular disease, unspecified; Z66 Do not resuscitate; I25.10 Atherosclerotic heart disease of native coronary artery without angina pectoris; R62.7 Adult failure to thrive; F17.210 Nicotine dependence, cigarettes, uncomplicated; F41.9 Anxiety disorder, unspecified; R00.1 Bradycardia, unspecified; I11.0 Hypertensive heart disease with heart failure; R79.89 Other specified abnormal findings of blood chemistry; Z95.5 Presence of coronary angioplasty implant and graft; Z82.0 Family history of epilepsy and other diseases of the nervous system; I25.2 Old myocardial infarction; Z82.49 Family history of ischemic heart disease and other diseases of the circulatory system; Z51.5 Encounter for palliative care; Z88.0 Allergy status to penicillin
CPT/HCPCS: 31500; 31622; 36415; 36569; 36600; 70450; 70496; 70498; 71045; 71275; 74018; 75710; 76604; 80053; 80307; 81001; 82040; 82728; 82805; 82962; 83605; 83735; 83880; 84100; 84132; 84146; 84443; 84478; 84484; 85025; 85379; 85610; 85730; 86141; 87040; 87070; 87081; 87086; 87205; 92610; 92928; 92978; 93005; 93306; 93458; 94002; 94003; 94640; 95819; 96365; 96367; 99152; 99153; 99291; C1769; C1874; C9113; G0378; J0131; J0171; J0330; J0696; J1100; J1815; J1956; J2001; J2250; J2405; J2704; J3480; J3490; J7060; J7131; P9047